=== PATIENT | female | born 1990 | race African-American/Black ===

== ENCOUNTER 2021-07-04 03:11 | Emergency (ER) | payer MEDICAID, SELFPAY ==
[2021-07-04 03:20] VITALS: BP 142/69; PULSE 69; O2SAT 100
[2021-07-04 03:32] VITALS: BP 110/62; PULSE 73; RESP 16; TEMP 37.1; O2SAT 100; BMI 24.1
[2021-07-04 03:51] LABS: IDNOW Serial# 9DD0AD1C
[2021-07-04 03:52] LABS: COVID-19 Test Positive (Negative)
--- NOTE | 2021-07-04 04:48 | ED_ITS ---
HPI - General Adult General Chief complaint: General Medical Stated complaint: +covid w/ symptoms Time Seen by Provider: 07/04/21 04:45 Source: patient History of Present Illness HPI narrative: this is a 30-year-old female who has had a cough for about 3 days with associated nausea and vomiting. The patient states she has been unable to hold down any food or fluids for the last 3 days that she feels that she is dehydrated, feels that her mouth is dry. She denies any sore throat. She has had mild rhinorrhea. She says her cough is actually improved. She has had abdominal pain. She did have diarrhea yesterday. She denies any urinary symptoms. She has not been vaccinated for COVID Related Data Previous Rx's Medication Instructions Recorded ondansetron 4 mg disintegrating 4 mg PO Q6H PRN #10 tab 07/04/21 tablet Allergies Allergy/AdvReac Type Severity Reaction Status Date / Time penicillin V Allergy Severe anaphylaxis Verified 08/04/19 00:00 Penicillins [PENICILLINS] Allergy Unknown DIFFICULTY Unverified 03/21/20 16:41 BREATHING Review of Systems Review of Systems: Yes all other systems are reviewed and are negative Constitutional: Constitutional: Reports as per HPI and Denies fever(s) Eyes: Eyes: Reports as per HPI and Reports no additional eye complaints ENT: Reports system reviewed and no additional complaints, except as documented, Reports as per HPI, Denies nasal congestion, Denies nasal discharge and Denies sore throat Cardiovascular: Cardiovascular: Reports as per HPI, Denies chest pain and Denies dyspnea Respiratory: Respiratory: Reports as per HPI, Reports cough and Denies dyspnea Gastrointestinal: Gastrointestinal: Reports as per HPI, Reports abdominal pain, Reports diarrhea, Reports nausea and Reports vomiting Genitourinary: Genitourinary: Reports as per HPI, Denies hematuria, Denies urinary frequency and Denies dysuria Musculoskeletal: Musculoskeletal: Reports myalgias and Denies numbness Integumentary/Breasts: Skin/Breast: Reports as per HPI and Denies rash Neurologic: Reports as per HPI, Denies focal weakness, Denies numbness and De nies Sensory deficit (Neuro) Psychiatric: Psychiatric: Reports no additional psychiatric complaints and Reports as per HPI Endocrine: Endocrine: Reports no additional endocrine complaints and Reports as per HPI Hematologic/Lymphatic: Hematologic/Lymphatic: Reports no additional hematologic/lymphatic complaints, Reports as per HPI and Reports other (No peripheral edema) [facility] Past Medical History Medical History (Updated 07/05/21 @ 00:01 by Background Nirmala) Asthma Social History Social History Advance Directives: No Advance Directives Information Provided: No Patient : No Physical Exam Vital Signs: Vital Signs: Last Vital Signs Temp 98.5 F 07/04/21 07:25 Pulse 78 07/04/21 07:25 Resp 15 07/04/21 07:25 BP 129/68 07/04/21 07:25 Pulse Ox 100 07/04/21 07:25 BMI result Body Mass Index 24.1 Const: General: cooperative, no acute distress and alert Che[place] entation/consciousness: patient oriented x3 HENMT: Head: Yes normal to inspection Eyes: General: appearance normal, both eyes and all related structures Eyelids: Yes eyelids normal Conjunctivae: conjunctivae normal Pupils: Equal, round and reactive pupils present Neck: Neck: Yes normal visual inspection and Yes supple Chest: Chest palpation & inspection: normal inspection of the chest Resp: Effort & Inspection: normal respiratory effort Auscultation: clear to auscultation bilaterally Cardio: Rate: regular rate Rhythm: regular rhythm Heart sounds: S1 normal heart sound present, S2 normal heart sound present, no gallops, no murmurs and no rubs GI: Palpation (GI): Soft to palpation, nontender and Other GI palpation findings present (Non-distended) Auscultation: normal bowel sounds Skin: General skin exam: no rashes or lesions noted Neuro: General: patient oriented x3, no focal motor deficits and CN's II-XI intact bilaterally Cranial nerves: Yes Equal, round and reactive pupils present Cognition (Neuro): normal cognition Motor exam (neuro): 5/5 motor strength present throughout Sensory Exam: No Sensory deficit (Neuro) Extrem: General: Yes normal to inspection and Yes no pedal edema Psych: Appearance: grossly normal Affect: normal affect Medical Decision Making MDM Narrative Medical decision making narrative: Patient with COVID, unvaccinated, complains of nausea and vomiting inability to hold down fluids. Patient was given normal saline 2 L IV in the ED as well as Zofran IV. Patient did not appear dehydrated. Labs are unremarkable with no evidence of deviated Lab Data Lab results reviewed: Yes I reviewed the patient's lab results. Result diagrams: 07/04/21 05:15 07/04/21 07:17 Labs: Lab Results 07/04/21 07/04/21 07/04/21 Range/Units 03:39 05:15 07:17 WBC 8.4 (4.8-10.8) X10*3/uL RBC 4.59 (4.20-5.50) X10*6/uL Hgb 13.7 (12.0-16.0) g/dl Hct 40.1 (37.0-47.0) % MCV 87.4 (80.0-98.0) fL MCH 29.8 (27.0-33.0) pg MCHC 34.2 (31.0-35.0) g/dl RDW 13.0 (11.0-16.0) % Plt Count 237 (160-400) X10*3/uL MPV 9.5 (9.4-12.3) fL Immature Gran % (Auto) 0.4 (0.0-0.4) % Neut % (Auto) 87.5 H (45-73) % Lymph % (Auto) 2.4 L (20-40) % [place] % (Auto) 9.5 (2-11) % Eos % (Auto) 0.0 (0-4) % Baso % (Auto) 0.2 (0-2) % Lymph # (Auto) 0.2 L (1.2-4.9) X10*3/uL [place] # (Auto) 0.8 (0.1-1.2) X10*3/uL Eos # (Auto) 0.0 (0.0-0.4) X10*3/uL Baso # (Auto) 0.0 (0.0-0.2) X10*3/uL Abs Immat Gran (auto) 0.03 (0.00-0.03) X10*3/uL Absolute Neuts (auto) 7.4 (2.0-8.3) x10*3/uL Absolute Nucleated RBC 0.000 (0.0-0.012) X10*3/uL Nucleated RBC % (auto) 0.0 (0.0-0.2) /100WBC Sodium 139 (135-145) mmol/L Potassium 3.6 (3.3-5.1) mmol/L Chloride 105 (96-108) mmol/L Carbon Dioxide 27 (22-29) mmol/L Anion Gap 11 L (12-20) BUN 11 (9-16) mg/dL Creatinine 0.68 (0.5-1.4) mg/dL Estim Creat Clear Calc 109.8 Estimated GFR > 60 Random Glucose 113 (60-115) mg/dL Calcium 8.8 (8.4-10.2) mg/dL COVID-19 (LEFTY) Positive A (Negative) COVID-19 Clin Com See Note Discharge Plan Discharge Clinical Impression: COVID-19, Nausea & vomiting Patient Disposition: Home, Self-Care Instructions: Acute Nausea and Vomiting (ED), COVID-19 (Coronavirus Disease 2019) (ED) Additional Instructions: Try to keep clear liquids down a little bit at a time. Use ondansetron as prescribed for nausea. Return for any new or worsened symptoms such as shortness of breath, increased weakness, inability to hold down fluids. Quarantine at home for the next 10 days. Prescriptions: New ondansetron 4 mg tablet,disintegrating 4 mg PO Q6H PRN (Reason: nausea and vomiting) Qty: 10 RF: 0 Interventions: ED Discharge Assessment Last Done: 07/04/21 07:27 Discharge Date/Time: 07/04/21 07:28
[2021-07-04] MEDS: 0.9 % Sodium Chloride 1,000 ML 999 ML IV (05:18)
[2021-07-04] MEDS: ondansetron HCL 4 MG/2 ML VIAL IVPUSH (05:18)
[2021-07-04 05:19] LABS: MANUAL DIFF FLAG NO
[2021-07-04 05:20] LABS: Basophils Percent Auto 0.2 % (0-2); Hematocrit 40.1 % (37.0-47.0); Hemoglobin 13.7 g/dl (12.0-16.0); Imm Gran Abs Auto 0.03 X10*3/uL (0.00-0.03); Imm Gran Pct Auto 0.4 % (0.0-0.4); Lymphocytes Absolute Auto 0.2 X10*3/uL (1.2-4.9); Lymphocytes Percent Auto 2.4 % (20-40); Mean Corpuscular HGB Conc 34.2 g/dl (31.0-35.0); Mean Corpuscular Hemoglobin 29.8 pg (27.0-33.0); Mean Corpuscular Volume 87.4 fL (80.0-98.0); Mean Platelet Volume 9.5 fL (9.4-12.3); Monocytes Absolute Auto 0.8 X10*3/uL (0.1-1.2); Monocytes Percent Auto 9.5 % (2-11); Neutrophils Absolute Auto 7.4 x10*3/uL (2.0-8.3); Neutrophils Percent Auto 87.5 % (45-73); Platelet Count 237 X10*3/uL (160-400); Red Blood Count 4.59 X10*6/uL (4.20-5.50); White Blood Count 8.4 X10*3/uL (4.8-10.8)
[2021-07-04 07:25] VITALS: BP 129/68; PULSE 78; RESP 15; TEMP 36.9; O2SAT 100
[2021-07-04] MEDS: Acetaminophen 325 MG TABLET 650 MG PO (07:31)
[2021-07-04 07:38] LABS: Anion Gap 11 (12-20); Blood Urea Nitrogen 11 mg/dL (9-16); Calcium 8.8 mg/dL (8.4-10.2); Carbon Dioxide 27 mmol/L (22-29); Chloride 105 mmol/L (96-108); Creatinine Clr Calc Pharmacy 109.8; Estimated Glomerular Filt Rate > 60; Glucose Random 113 mg/dL (60-115); Potassium 3.6 mmol/L (3.3-5.1); Sodium 139 mmol/L (135-145)
== END 2021-07-04 07:28 | disposition home or self-care (01) ==
PROVIDERS: Emergency Provider Emergency Medicine
DX: U07.1 COVID-19 (principal); R11.2 Nausea with vomiting, unspecified
CPT/HCPCS: 36415; 80048; 85025; 87635; 96361; 96374; 99284; J2405

== ENCOUNTER 2023-11-01 13:40 | Outpatient (REF) | payer MEDICAID, SELFPAY ==
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
== END 2023-11-01 13:41 | disposition home or self-care (01) ==
LOC: HO.HHCX 13:40
PROVIDERS: Visit Provider Internal Medicine
DX: M20.002 Unspecified deformity of left finger(s) (principal)
CPT/HCPCS: 73130

== ENCOUNTER 2024-01-12 12:41 | Emergency (ER) | payer MEDICAID, SELFPAY ==
--- NOTE | ~2024-01-12 | XR_ITS ---
EXAMINATION: XR HAND, LEFT CLINICAL INFORMATION: Pain, injury COMPARISON: Left hand x-ray on 11/01/2023 TECHNIQUE: PA, lateral, and oblique views of the left hand. FINDINGS: The bones and soft tissues are normal. No fracture. Alignment is anatomic. Joint spaces are maintained. No erosions or soft tissue calcifications. XR/XR hand LT min 3V IMPRESSION: Normal left hand.
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
[2024-01-12 13:12] VITALS: BP 130/78; PULSE 106; BMI 23.0
[2024-01-12] MEDS: Bacitracin Oint 0.9 GM PACKET 1 APPL TOPICAL (14:02)
== END 2024-01-12 14:09 | disposition home or self-care (01) ==
PROVIDERS: Emergency Provider Emergency Medicine
DX: S80.212A Abrasion, left knee, initial encounter (principal); S60.512A Abrasion of left hand, initial encounter; M25.562 Pain in left knee; M79.642 Pain in left hand; Y04.2XXA Assault by strike against or bumped into by another person, initial encounter; Y93.9 Activity, unspecified; Y92.9 Unspecified place or not applicable; Y99.8 Other external cause status
CPT/HCPCS: 73130; 99281; 99283

== ENCOUNTER 2024-02-18 15:15 | Outpatient (REF) | payer MEDICAID, SELFPAY ==
[2024-02-18 16:05] LABS: MANUAL DIFF FLAG NO
[2024-02-18 16:10] LABS: Basophils Absolute Auto 0.1 X10*3/uL (0.0-0.2); Basophils Percent Auto 0.7 % (0-2); Eosinophils Absolute Auto 0.1 X10*3/uL (0.0-0.4); Eosinophils Percent Auto 0.5 % (0-4); Hematocrit 39.6 % (37.0-47.0); Hemoglobin 13.5 g/dl (12.0-16.0); Imm Gran Abs Auto 0.06 X10*3/uL (0.00-0.03); Imm Gran Pct Auto 0.4 % (0.0-0.4); Lymphocytes Absolute Auto 2.3 X10*3/uL (1.2-4.9); Lymphocytes Percent Auto 16.8 % (20-40); Mean Corpuscular HGB Conc 34.1 g/dl (31.0-35.0); Mean Corpuscular Hemoglobin 29.3 pg (27.0-33.0); Mean Corpuscular Volume 85.9 fL (80.0-98.0); Mean Platelet Volume 9.3 fL (9.4-12.3); Monocytes Absolute Auto 0.8 X10*3/uL (0.1-1.2); Monocytes Percent Auto 5.9 % (2-11); Neutrophils Absolute Auto 10.2 x10*3/uL (2.0-8.3); Neutrophils Percent Auto 75.7 % (45-73); Platelet Count 295 X10*3/uL (160-400); Red Blood Count 4.61 X10*6/uL (4.20-5.50); Red Cell Distribution Width 12.8 % (11.0-16.0); White Blood Count 13.5 X10*3/uL (4.8-10.8)
[2024-02-18 16:35] LABS: Alanine Aminotransferase 13 U/L (0-31); Albumin Level 4.2 g/dL (3.5-5.0); Alkaline Phosphatase 39 U/L (39-117); Anion Gap 12 (12-20); Aspartate Amino Transferase 18 U/L (5-31); Bilirubin Total 0.5 mg/dL (0.0-1.0); Blood Urea Nitrogen 11 mg/dL (9-16); Calcium 9.2 mg/dL (8.4-10.2); Carbon Dioxide 22 mmol/L (22-29); Chloride 110 mmol/L (96-108); Estimated Glomerular Filt Rate > 60; Glucose Random 92 mg/dL (60-115); Potassium 3.8 mmol/L (3.3-5.1); Sodium 140 mmol/L (135-145); Total Protein 6.7 g/dL (6.5-8.0)
== END 2024-02-18 15:16 | disposition home or self-care (01) ==
LOC: HO.HHCL 15:15
PROVIDERS: Visit Provider General Practice
DX: R11.2 Nausea with vomiting, unspecified (principal)
CPT/HCPCS: 36415; 80053; 83036; 85025

== ENCOUNTER 2024-02-18 15:35 | Outpatient (REF) | payer MEDICAID, SELFPAY ==
[2024-02-18 16:39] LABS: Estimated Average Glucose 91 mg/dL; Hemoglobin A1c % 4.8 % (<6.0)
== END 2024-02-18 15:36 | disposition home or self-care (01) ==
LOC: HO.HHCL 15:35
PROVIDERS: Visit Provider General Practice
DX: R11.2 Nausea with vomiting, unspecified (principal)
CPT/HCPCS: 36415; 83036

== ENCOUNTER 2024-02-22 11:12 | Outpatient (REF) | payer MEDICAID, SELFPAY | END 2024-02-22 11:13 | disposition home or self-care (01) | LOC: HO.LNP 11:12 | PROVIDERS: Visit Provider General Practice | DX: R11.2 Nausea with vomiting, unspecified (principal) | CPT/HCPCS: 87338 ==

== ENCOUNTER 2024-03-27 03:03 | Emergency (ER) | payer MEDICAID, SELFPAY ==
[2024-03-27 03:08] VITALS: BP 124/67; PULSE 72; RESP 18; TEMP 36.5; O2SAT 99; BMI 22.5
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
[2024-03-27] MEDS: ondansetron HCL 4 MG/2 ML VIAL IVPUSH (03:54)
[2024-03-27 03:56] LABS: Influenza A PCR NEGATIVE (Negative); Influenza B PCR NEGATIVE (Negative); Resp Syncy Virus RNA Qual PCR NEGATIVE (Negative); SARS COV2 PCR INHOUSE NEGATIVE (Negative)
[2024-03-27] MEDS: 0.9 % Sodium Chloride 1,000 ML 999 ML IV (03:56)
[2024-03-27 04:13] LABS: Basophils Absolute Auto 0.1 X10*3/uL (0.0-0.2); Basophils Percent Auto 0.8 % (0-2); Eosinophils Percent Auto 0.4 % (0-4); Hematocrit 38.1 % (37.0-47.0); Hemoglobin 13.1 g/dl (12.0-16.0); Imm Gran Abs Auto 0.03 X10*3/uL (0.00-0.03); Imm Gran Pct Auto 0.3 % (0.0-0.4); Lymphocytes Absolute Auto 1.1 X10*3/uL (1.2-4.9); Lymphocytes Percent Auto 10.4 % (20-40); MANUAL DIFF FLAG NO; Mean Corpuscular HGB Conc 34.4 g/dl (31.0-35.0); Mean Corpuscular Hemoglobin 29.3 pg (27.0-33.0); Mean Corpuscular Volume 85.2 fL (80.0-98.0); Mean Platelet Volume 9.3 fL (9.4-12.3); Monocytes Absolute Auto 0.3 X10*3/uL (0.1-1.2); Monocytes Percent Auto 2.7 % (2-11); Neutrophils Absolute Auto 9.1 x10*3/uL (2.0-8.3); Neutrophils Percent Auto 85.4 % (45-73); Platelet Count 251 X10*3/uL (160-400); Red Blood Count 4.47 X10*6/uL (4.20-5.50); Red Cell Distribution Width 12.7 % (11.0-16.0); White Blood Count 10.6 X10*3/uL (4.8-10.8)
[2024-03-27 04:26] LABS: Alanine Aminotransferase 22 U/L (0-31); Alkaline Phosphatase 40 U/L (39-117); Anion Gap 12 (12-20); Aspartate Amino Transferase 26 U/L (5-31); Bilirubin Total 0.5 mg/dL (0.0-1.0); Blood Urea Nitrogen 14 mg/dL (9-16); Calcium 9.6 mg/dL (8.4-10.2); Carbon Dioxide 29 mmol/L (22-29); Chloride 107 mmol/L (96-108); Creatinine Clr Calc Pharmacy 87.6; Estimated Glomerular Filt Rate > 60; Glucose Random 122 mg/dL (60-115); Lipase 10 U/L (8-78); Potassium 3.9 mmol/L (3.3-5.1); Sodium 144 mmol/L (135-145); Total Protein 6.4 g/dL (6.5-8.0)
[2024-03-27 06:02] VITALS: BP 109/47; PULSE 59; RESP 16; TEMP 36.8; O2SAT 97
[2024-03-27 06:17] VITALS: BP 110/70; PULSE 68; RESP 14; TEMP 36.8; O2SAT 99
== END 2024-03-27 06:20 | disposition home or self-care (01) ==
PROVIDERS: Emergency Provider Internal Medicine
DX: R11.2 Nausea with vomiting, unspecified (principal); Z03.818 Encounter for observation for suspected exposure to other biological agents ruled out
CPT/HCPCS: 0241U; 36415; 80053; 83690; 85025; 96374; 99284; J2405

== ENCOUNTER 2024-05-04 01:24 | Emergency (ER) | payer MEDICAID, SELFPAY ==
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
[2024-05-04 01:31] VITALS: BP 129/88; PULSE 119; RESP 24; TEMP 37.6; O2SAT 98; BMI 21.8
[2024-05-04] MEDS: Acetaminophen 325 MG TABLET 975 MG PO (01:41)
[2024-05-04] MEDS: Clindamycin HCL 300 MG CAPSULE PO (01:42)
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
[2024-05-04 04:49] VITALS: BP 120/73; PULSE 99; RESP 16; TEMP 36.7; O2SAT 98
== END 2024-05-04 04:50 | disposition home or self-care (01) ==
PROVIDERS: Emergency Provider Emergency Medicine
DX: S09.90XA Unspecified injury of head, initial encounter (principal); S01.511A Laceration without foreign body of lip, initial encounter; Y00.XXXA Assault by blunt object, initial encounter; Y93.89 Activity, other specified; Y92.9 Unspecified place or not applicable; Y99.9 Unspecified external cause status
CPT/HCPCS: 70450; 99284

== ENCOUNTER 2024-05-18 12:09 | Outpatient (REF) | payer MEDICAID, SELFPAY ==
[2024-05-18 18:46] LABS: CT PCR NOT DETECTED (Not Detect.); NG PCR NOT DETECTED (Not Detect.)
[2024-05-19 08:25] LABS: HIV AB/AG Nonreactive (Nonreactive); HIV Num 1 0.06 S/CO (0.00-0.99); ~HepC Num1 0.09 S/CO (0.00-0.79); ~Hepatitis C Antibody Nonreactive (Nonreactive)
[2024-05-22 14:18] LABS: RPR Rapid Plasma Reagin NON-REACTIVE (NON-REACTIVE)
== END 2024-05-18 12:10 | disposition home or self-care (01) ==
LOC: HO.HHCL 12:09
PROVIDERS: Visit Provider General Practice
DX: Z11.3 Encounter for screening for infections with a predominantly sexual mode of transmission (principal); Z11.4 Encounter for screening for human immunodeficiency virus [HIV]
CPT/HCPCS: 86592; 86803; 87389; 87491; 87591

== ENCOUNTER 2024-07-09 15:04 | Emergency (ER) | payer MEDICAID, SELFPAY ==
[2024-07-09 16:04] VITALS: BP 106/71; PULSE 74; RESP 18; TEMP 36.9; O2SAT 99; BMI 22.5
--- NOTE | 2024-07-09 16:12 | ED_ITS ---
HPI - General Adult General Chief complaint: Nausea/Vomiting/Diarrhea Stated complaint: n/v/d x 3 days Time Seen by Provider: 07/09/24 18:50 Related Data Previous Rx's ?Medication ?Instructions ?Recorded ondansetron 4 mg disintegrating 4 mg PO Q6H PRN nausea and 07/04/21 tablet vomiting #10 tabs rdxybmktlj-bkhuwxeusfubr-ktcsaheh 1 tab PO Q6H PRN haeadace #20 tabs 03/27/24 50 mg-325 mg-40 mg tablet ondansetron HCl 4 mg tablet 4 mg PO Q6H PRN nausea and 03/27/24 vomiting #10 tabs clindamycin HCl 300 mg capsule 300 mg PO TID #14 caps 05/04/24 ibuprofen 400 mg tablet 400 mg PO Q6H PRN pain #20 tabs 07/09/24 Allergies Allergy/AdvReac Type Severity Reaction Status Date / Time penicillin V Allergy Severe anaphylaxis Verified 07/09/24 16:10 Penicillins [PENICILLINS] Allergy Unknown DIFFICULTY Verified 07/09/24 16:10 BREATHING PMFSH Past Medical History Medical History Asthma Social History Social History Alcohol intake: current Alcohol intake frequency: holidays/special occasions only Smoked in Last 30 Days: Yes Use of substances other than those prescribed or required for medical reasons: Yes Substance Use Type: Marijuana Substance Use Frequency: Daily Advance Directives: No Advance Directives Information Provided: No Do you have a plan to hurt others: No Plan Patient : No Physical Exam ED Vital Signs: Vital Signs - 24 hr 07/09/24 16:04 07/09/24 20:02 Temperature 98.4 F 98.3 F Pulse Rate 74 71 Respiratory Rate 18 16 Blood Pressure 106/71 111/65 Pulse Oximetry 99 99 Oxygen Delivery Method Room Air Room Air BMI result Body Mass Index 22.5 Course Course Course Narrative: RME: 33-year-old female presents to ED for nausea vomiting diarrhea for the past 3 days with fever and chills. Patient was exposed to a sick . Labs ordered. Medications Administered Discontinued Medications Generic Name Dose Route Start Last Admin Trade Name Freq PRN Reason Stop Dose Admin Sodium Chloride 1,000 mls @ 999 mls/hr 07/09/24 19:30 07/09/24 22:43 Ns IV 07/09/24 20:30 Infused .Q1H1M LAYLA Infusion Sodium Chloride 1,000 mls @ 999 mls/hr 07/09/24 19:30 07/09/24 22:43 Ns IV 07/09/24 20:30 Infused .Q1H1M LAYLA Infusion Ketorolac Tromethamine 30 mg 07/09/24 19:23 07/09/24 19:47 Ketorolac Tromethamine 30 Mg/Ml Vial IVPUSH 07/09/24 19:24 30 mg ONCE ONE Administration Ondansetron HCl 4 mg 07/09/24 19:23 07/09/24 19:47 Ondansetron Hcl 4 Mg/2 Ml Vial IVPUSH 07/09/24 19:24 4 mg ONCE ONE Administration Medical Decision Making Lab Data 07/09/24 16:56 07/09/24 16:56 Labs: Lab Results 07/09/24 07/09/24 Range/Units 16:56 21:52 WBC 8.9 (4.8-10.8) X10*3/uL RBC 4.61 (4.20-5.50) X10*6/uL Hgb 13.5 (12.0-16.0) g/dl Hct 39.0 (37.0-47.0) % MCV 84.6 (80.0-98.0) fL MCH 29.3 (27.0-33.0) pg MCHC 34.6 (31.0-35.0) g/dl RDW 12.4 (11.0-16.0) % Plt Count 186 D (160-400) X10*3/uL MPV 9.5 (9.4-12.3) fL Immature Gran % (Auto) 0.6 H (0.0-0.4) % Neut % (Auto) 92.0 H (45-73) % Lymph % (Auto) 2.6 L (20-40) % [place] % (Auto) 4.2 (2-11) % Eos % (Auto) 0.1 (0-4) % Baso % (Auto) 0.5 (0-2) % Lymph # (Auto) 0.2 L (1.2-4.9) X10*3/uL [place] # (Auto) 0.4 (0.1-1.2) X10*3/uL Eos # (Auto) 0.0 (0.0-0.4) X10*3/uL Baso # (Auto) 0.0 (0.0-0.2) X10*3/uL Abs Immat Gran (auto) 0.05 H (0.00-0.03) X10*3/uL Absolute Neuts (auto) 8.2 (2.0-8.3) x10*3/uL Absolute Nucleated RBC 0.000 (0.0-0.012) X10*3/uL Nucleated RBC % (auto) 0.0 (0.0-0.2) /100WBC Smear Tech's Comments VERIFIED Sodium 139 (135-145) mmol/L Potassium 3.4 (3.3-5.1) mmol/L Chloride 107 (96-108) mmol/L Carbon Dioxide 20 L (22-29) mmol/L Anion Gap 15 (12-20) BUN 12 (9-16) mg/dL Creatinine 0.76 (0.5-1.4) mg/dL Estim Creat Clear Calc 95.6 Estimated GFR > 60 Random Glucose 113 (60-115) mg/dL Calcium 9.5 (8.4-10.2) mg/dL Total Bilirubin 0.5 (0.0-1.0) mg/dL AST 28 (5-31) U/L ALT 20 (0-31) U/L Alkaline Phosphatase 41 (39-117) U/L Total Protein 7.1 (6.5-8.0) g/dL Albumin 4.3 (3.5-5.0) g/dL Beta HCG, Quant < 2 mIU/mL Urine Color Dark Yellow Urine Appearance Hazy Urine pH 5.5 (5.0-9.0) Ur Specific [place] >= 1.030 H (1.005-1.025) Urine Protein 100 (2+) H (Neg-Trace) mg/dL Urine Glucose (UA) Negative (Negative) mg/dL Urine Ketones 15 (Negative) mg/dL Urine Blood Negative (Negative) Urine Nitrite Negative (Negative) Ur Leukocyte Esterase Negative (Negative) Urine RBC 0-2 (0-2) /HPF Urine WBC 0-5 (0-5) /HPF Ur Squamous Epith Cells 6-10 (0-2) /HPF Urine Bacteria Trace (None Seen) Hyaline Casts 3-5 (0-2) /LPF Urine Test NEGATIVE (NEGATIVE) Influenza Type A (PCR) POSITIVE A (Negative) Influenza Type B (PCR) NEGATIVE (Negative) RSV RNA Qual (PCR) NEGATIVE (Negative) SARS-CoV-2 RNA (RT-PCR) NEGATIVE (Negative) S. pyogenes GrpA EFREN Negative (Negative) Discharge Plan Discharge Clinical Impression: Influenza Patient Disposition: Home, Self-Care Instructions: Influenza (ED) Prescriptions: New ibuprofen 400 mg tablet 400 mg PO Q6H PRN (Reason: pain) Qty: 20 0RF No Action ondansetron 4 mg tablet,disintegrating 4 mg PO Q6H PRN (Reason: nausea and vomiting) Qty: 10 0RF clindamycin HCl 300 mg capsule 300 mg PO TID Qty: 14 0RF ondansetron HCl 4 mg tablet 4 mg PO Q6H PRN (Reason: nausea and vomiting) Qty: 10 0RF htmtpgrksu-puwqxhsenhghs-wvez 50-325-40 mg tablet 1 tab PO Q6H PRN (Reason: haeadace) Qty: 20 0RF Referrals: [facility] [Primary Care Provider] - 07/11/24 Print Language: Turkish
[2024-07-09 17:04] LABS: Basophils Percent Auto 0.5 % (0-2); Eosinophils Percent Auto 0.1 % (0-4); Hemoglobin 13.5 g/dl (12.0-16.0); Imm Gran Abs Auto 0.05 X10*3/uL (0.00-0.03); Imm Gran Pct Auto 0.6 % (0.0-0.4); Lymphocytes Absolute Auto 0.2 X10*3/uL (1.2-4.9); Lymphocytes Percent Auto 2.6 % (20-40); MANUAL DIFF FLAG SCAN; Mean Corpuscular HGB Conc 34.6 g/dl (31.0-35.0); Mean Corpuscular Hemoglobin 29.3 pg (27.0-33.0); Mean Corpuscular Volume 84.6 fL (80.0-98.0); Mean Platelet Volume 9.5 fL (9.4-12.3); Monocytes Absolute Auto 0.4 X10*3/uL (0.1-1.2); Monocytes Percent Auto 4.2 % (2-11); Neutrophils Absolute Auto 8.2 x10*3/uL (2.0-8.3); Platelet Count 186 X10*3/uL (160-400); Red Blood Count 4.61 X10*6/uL (4.20-5.50); Red Cell Distribution Width 12.4 % (11.0-16.0); SCAN SMEAR FLAG 1; White Blood Count 8.9 X10*3/uL (4.8-10.8)
[2024-07-09 17:14] LABS: IDNOW Serial# 58CA691E; Strep A Nucleic Acid Negative (Negative)
[2024-07-09 17:24] LABS: Alanine Aminotransferase 20 U/L (0-31); Albumin Level 4.3 g/dL (3.5-5.0); Alkaline Phosphatase 41 U/L (39-117); Anion Gap 15 (12-20); Aspartate Amino Transferase 28 U/L (5-31); Bilirubin Total 0.5 mg/dL (0.0-1.0); Blood Urea Nitrogen 12 mg/dL (9-16); Calcium 9.5 mg/dL (8.4-10.2); Carbon Dioxide 20 mmol/L (22-29); Chloride 107 mmol/L (96-108); Creatinine Clr Calc Pharmacy 95.6; Estimated Glomerular Filt Rate > 60; Glucose Random 113 mg/dL (60-115); Potassium 3.4 mmol/L (3.3-5.1); Sodium 139 mmol/L (135-145); Total Protein 7.1 g/dL (6.5-8.0)
[2024-07-09 17:26] LABS: HCG Quantitative < 2 mIU/mL
--- NOTE | 2024-07-09 17:34 | PC.NURSE ---
large amount coffee ground emisis in wr BR
[2024-07-09 17:43] LABS: Influenza A PCR POSITIVE (Negative); Influenza B PCR NEGATIVE (Negative); Resp Syncy Virus RNA Qual PCR NEGATIVE (Negative); SARS COV2 PCR INHOUSE NEGATIVE (Negative)
[2024-07-09 17:57] LABS: SLIDE REVIEW VERIFIED
--- NOTE | 2024-07-09 19:28 | ED.NAVMDI ---
HPI - Nausea/Vomiting/Diarrhea General Chief complaint: Nausea/Vomiting/Diarrhea Stated complaint: n/v/d x 3 days Time Seen by Provider: 07/09/24 18:50 History of Present Illness HPI Narrative: Patient is a 33-year-old female presents today with having coughing congestion upper respiratory symptoms along with nausea vomiting diarrhea. Feels very weak tired total body ache. Patient from home. Did not get her flu vaccine this year. No pain on urination. Related Data Previous Rx's ?Medication ?Instructions ?Recorded ondansetron 4 mg disintegrating 4 mg PO Q6H PRN nausea and 07/04/21 tablet vomiting #10 tabs rbcjcubplv-kwtmgehzhegnf-fmowdnoz 1 tab PO Q6H PRN haeadace #20 tabs 03/27/24 50 mg-325 mg-40 mg tablet ondansetron HCl 4 mg tablet 4 mg PO Q6H PRN nausea and 03/27/24 vomiting #10 tabs clindamycin HCl 300 mg capsule 300 mg PO TID #14 caps 05/04/24 ibuprofen 400 mg tablet 400 mg PO Q6H PRN pain #20 tabs 07/09/24 Allergies Allergy/AdvReac Type Severity Reaction Status Date / Time penicillin V Allergy Severe anaphylaxis Verified 07/09/24 16:10 Penicillins [PENICILLINS] Allergy Unknown DIFFICULTY Verified 07/09/24 16:10 BREATHING Review of Systems Review of Systems: Positive nausea vomiting positive total body ache positive coughing upper respiratory symptoms PMFSH Past Medical History Medical History Asthma Social History Social History Alcohol intake: current Alcohol intake frequency: holidays/special occasions only Smoked in Last 30 Days: Yes Use of substances other than those prescribed or required for medical reasons: Yes Substance Use Type: Marijuana Substance Use Frequency: Daily Advance Directives: No Advance Directives Information Provided: No Do you have a plan to hurt others: No Plan Patient : No Physical Exam Vital Signs: Vital Signs: Last Vital Signs Temp 98.3 F 07/09/24 20:02 Pulse 71 07/09/24 20:02 Resp 16 07/09/24 20:02 BP 111/65 07/09/24 20:02 Pulse Ox 99 07/09/24 20:02 O2 Del Method Room Air 07/09/24 20:02 BMI result Body Mass Index 22.5 Appearance: Alert. Oriented X3. No acute distress. Eyes: Pupils equal, round and reactive to light. ENT: Pharynx normal. Neck: Normal inspection. Neck supple. No lymph nodes noted. No crepitus CVS: Normal heart rate and rhythm. Pulses normal. Normal S1 and S2 Respiratory: No respiratory distress. Breath sounds normal. No Wheezing. No rales Abdomen: Soft and nontender. No rigidity. No distention. good BS x4 Skin: Skin warm and dry. Normal skin color. Normal skin turgor. Extremities: No lower extremity edema. Neurovascular intact to all extremities. No Lacerations. No Rash Neuro: Oriented X 3. No motor deficit. No sensory deficit. Moving all extermities. No slurred speech Medications Administered Discontinued Medications Generic Name Dose Route Start Last Admin Trade Name Freq PRN Reason Stop Dose Admin Sodium Chloride 1,000 mls @ 999 mls/hr 07/09/24 19:30 07/09/24 22:43 Ns IV 07/09/24 20:30 Infused .Q1H1M LAYLA Infusion Sodium Chloride 1,000 mls @ 999 mls/hr 07/09/24 19:30 07/09/24 22:43 Ns IV 07/09/24 20:30 Infused .Q1H1M LAYLA Infusion Ketorolac Tromethamine 30 mg 07/09/24 19:23 07/09/24 19:47 Ketorolac Tromethamine 30 Mg/Ml Vial IVPUSH 07/09/24 19:24 30 mg ONCE ONE Administration Ondansetron HCl 4 mg 07/09/24 19:23 07/09/24 19:47 Ondansetron Hcl 4 Mg/2 Ml Vial IVPUSH 07/09/24 19:24 4 mg ONCE ONE Administration Medical Decision Making Medical Decision Making MDM Narrative: Well-appearing positive total body ache. Generalized malaise. Patient's flu test came back positive. Likely the cause of patient's symptoms. Symptom has been ongoing for greater than 72 hours. Do not think Tamiflu would help here. Patient is otherwise fairly healthy. Does have a history of asthma but her lungs are clear oxygen saturation is normal. Will give symptomatic support with IV fluids Toradol. Monitor carefully. Urine showed no signs of infection. test is negative. Patient has flu. Symptoms greater than 72 hours. Will discharge patient home currently satting normally. In no distress. Differential Diagnosis Differential Diagnoses: The differential diagnosis associated with the presentation includes Influenza, COVID, RSV Admission/Observation Consideration of admission/observation: Escalation of care including admission/observation considered Lab Data MDM Lab Attestation statement: I reviewed the patient's lab results. 07/09/24 16:56 07/09/24 16:56 Labs: Lab Results 07/09/24 07/09/24 Range/Units 16:56 21:52 WBC 8.9 (4.8-10.8) X10*3/uL RBC 4.61 (4.20-5.50) X10*6/uL Hgb 13.5 (12.0-16.0) g/dl Hct 39.0 (37.0-47.0) % MCV 84.6 (80.0-98.0) fL MCH 29.3 (27.0-33.0) pg MCHC 34.6 (31.0-35.0) g/dl RDW 12.4 (11.0-16.0) % Plt Count 186 D (160-400) X10*3/uL MPV 9.5 (9.4-12.3) fL Immature Gran % (Auto) 0.6 H (0.0-0.4) % Neut % (Auto) 92.0 H (45-73) % Lymph % (Auto) 2.6 L (20-40) % [place] % (Auto) 4.2 (2-11) % Eos % (Auto) 0.1 (0-4) % Baso % (Auto) 0.5 (0-2) % Lymph # (Auto) 0.2 L (1.2-4.9) X10*3/uL [place] # (Auto) 0.4 (0.1-1.2) X10*3/uL Eos # (Auto) 0.0 (0.0-0.4) X10*3/uL Baso # (Auto) 0.0 (0.0-0.2) X10*3/uL Abs Immat Gran (auto) 0.05 H (0.00-0.03) X10*3/uL Absolute Neuts (auto) 8.2 (2.0-8.3) x10*3/uL Absolute Nucleated RBC 0.000 (0.0-0.012) X10*3/uL Nucleated RBC % (auto) 0.0 (0.0-0.2) /100WBC Smear Tech's Comments VERIFIED Sodium 139 (135-145) mmol/L Potassium 3.4 (3.3-5.1) mmol/L Chloride 107 (96-108) mmol/L Carbon Dioxide 20 L (22-29) mmol/L Anion Gap 15 (12-20) BUN 12 (9-16) mg/dL Creatinine 0.76 (0.5-1.4) mg/dL Estim Creat Clear Calc 95.6 Estimated GFR > 60 Random Glucose 113 (60-115) mg/dL Calcium 9.5 (8.4-10.2) mg/dL Total Bilirubin 0.5 (0.0-1.0) mg/dL AST 28 (5-31) U/L ALT 20 (0-31) U/L Alkaline Phosphatase 41 (39-117) U/L Total Protein 7.1 (6.5-8.0) g/dL Albumin 4.3 (3.5-5.0) g/dL Beta HCG, Quant < 2 mIU/mL Urine Color Dark Yellow Urine Appearance Hazy Urine pH 5.5 (5.0-9.0) Ur Specific [place] >= 1.030 H (1.005-1.025) Urine Protein 100 (2+) H (Neg-Trace) mg/dL Urine Glucose (UA) Negative (Negative) mg/dL Urine Ketones 15 (Negative) mg/dL Urine Blood Negative (Negative) Urine Nitrite Negative (Negative) Ur Leukocyte Esterase Negative (Negative) Urine RBC 0-2 (0-2) /HPF Urine WBC 0-5 (0-5) /HPF Ur Squamous Epith Cells 6-10 (0-2) /HPF Urine Bacteria Trace (None Seen) Hyaline Casts 3-5 (0-2) /LPF Urine Test NEGATIVE (NEGATIVE) Influenza Type A (PCR) POSITIVE A (Negative) Influenza Type B (PCR) NEGATIVE (Negative) RSV RNA Qual (PCR) NEGATIVE (Negative) SARS-CoV-2 RNA (RT-PCR) NEGATIVE (Negative) S. pyogenes GrpA EFREN Negative (Negative) Discharge Plan Discharge Clinical Impression: Influenza Patient Disposition: Home, Self-Care Instructions: Influenza (ED) Prescriptions: New ibuprofen 400 mg tablet 400 mg PO Q6H PRN (Reason: pain) Qty: 20 0RF No Action ondansetron 4 mg tablet,disintegrating 4 mg PO Q6H PRN (Reason: nausea and vomiting) Qty: 10 0RF clindamycin HCl 300 mg capsule 300 mg PO TID Qty: 14 0RF ondansetron HCl 4 mg tablet 4 mg PO Q6H PRN (Reason: nausea and vomiting) Qty: 10 0RF abmikchbwc-kmhrbawhhgeww-cubp 50-325-40 mg tablet 1 tab PO Q6H PRN (Reason: haeadace) Qty: 20 0RF Referrals: [facility] [Primary Care Provider] - 07/11/24 Print Language: Vietnamese
[2024-07-09] MEDS: ondansetron HCL 4 MG/2 ML VIAL IVPUSH (19:47)
[2024-07-09] MEDS: 0.9 % Sodium Chloride 1,000 ML 999 ML IV ×2 (19:47)
[2024-07-09] MEDS: Ketorolac Tromethamine 30 MG/ML VIAL IVPUSH (19:47)
[2024-07-09 20:02] VITALS: BP 111/65; PULSE 71; RESP 16; TEMP 36.8; O2SAT 99
[2024-07-09 22:17] LABS: UPreg QC Valid YES; Urine Pregnancy NEGATIVE (NEGATIVE)
[2024-07-09 22:26] LABS: Color Urine Dark Yellow; Glucose Urine UA Negative (Negative); Leukocyte Esterase Urine Negative (Negative); Nitrite Urine Negative (Negative); PH 5.5 (5.0-9.0); Specific Gravity - Urine >= 1.030 (1.005-1.025); UMIC TRIGGER UACC YES; Urine Blood Negative (Negative); Urine Ketones 15 mg/dL (Negative); Urine Protein 100 (2+) mg/dL (Neg-Trace)
[2024-07-09 22:37] LABS: Bacteria Urine Trace (None Seen); RBC Urine 0-2 /HPF (0-2); WBC Urine 0-5 /HPF (0-5)
[2024-07-09 22:38] LABS: Appearance Urine Hazy
[2024-07-10] MEDS: Acetaminophen 325 MG TABLET 975 MG PO (00:08)
[2024-07-10 00:09] VITALS: BP 108/67; PULSE 53; RESP 14; TEMP 36.6; O2SAT 97
[2024-07-10 00:16] VITALS: BP 108/67; PULSE 53; RESP 14; TEMP 36.6; O2SAT 97
== END 2024-07-10 00:17 | disposition home or self-care (01) ==
PROVIDERS: Physician Assistant; Emergency Provider Emergency Medicine Emergency Medical Services
DX: J10.1 Influenza due to other identified influenza virus with other respiratory manifestations (principal); R11.2 Nausea with vomiting, unspecified; M79.10 Myalgia, unspecified site; Z03.818 Encounter for observation for suspected exposure to other biological agents ruled out; Z79.899 Other long term (current) drug therapy
CPT/HCPCS: 0241U; 80053; 81001; 81003; 81025; 84702; 85025; 87651; 96361; 96374; 96375; 99284; J1885; J2405

== ENCOUNTER 2024-07-28 11:23 | Emergency (ER) | payer MEDICAID, SELFPAY ==
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
[2024-07-28 11:30] VITALS: BP 122/99; PULSE 86; O2SAT 98
--- NOTE | 2024-07-28 11:48 | ED_ITS ---
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 She states she was lying on her bed when she asked her to throw her phone over to her. she states the phone hit the cushioned headboard of the bed and struck patient in the left side of her head. Reports immediate bleeding to her head. No LOC. Not on thinners. At present endorses headache. No vision ch anges, dizziness, NV, neck pain. Admits to history of head trauma when she was a child. States she feels safe at home and that the incident was an accident. She is unsure of her last tetanus. Related Data Previous Rx's ?Medication ?Instructions ?Recorded ondansetron 4 mg disintegrating 4 mg PO Q6H PRN nausea and 07/04/21 tablet vomiting #10 tabs typtueagla-hwrltkbntrofd-uafugmqr 1 tab PO Q6H PRN haeadace #20 tabs 03/27/24 50 mg-325 mg-40 mg tablet ondansetron HCl 4 mg tablet 4 mg PO Q6H PRN nausea and 03/27/24 vomiting #10 tabs clindamycin HCl 300 mg capsule 300 mg PO TID #14 caps 05/04/24 ibuprofen 400 mg tablet 400 mg PO Q6H PRN pain #20 tabs 07/09/24 ondansetron 4 mg disintegrating 4 mg PO TID PRN nausea and 07/10/24 tablet vomiting 5 days #10 tabs Allergies Allergy/AdvReac Type Severity Reaction Status Date / Time penicillin V Allergy Severe anaphylaxis Verified 07/28/24 12:01 Penicillins [PENICILLINS] Allergy Unknown DIFFICULTY Verified 07/28/24 12:01 BREATHING Review of Systems Review of Systems: Constitutional: No fever, chills, fatigue, night sweats, weight changes ENT/Mouth: No ear pain, hearing loss, nasal congestion, sinus pain, rhinorrhea, sore throat Eyes: No eye pain, swelling, redness, vision changes, discharge Cardio: No chest pain, palpitations, [place], orthopnea, peripheral edema Pulm: No SOB, cough, sputum, wheezing, dyspnea, hemoptysis GI: No nausea, vomiting, hematemesis, abdominal pain, diarrhea, constipation, hematochezia, melena : No irregular bleeding, dysuria, frequency, urgency, hesitancy, hematuria, flank pain, urinary flow changes, urinary incontinence or retention MSK: No back pain, neck pain, joint pain, myalgias Skin: No lesions, rashes Neuro: No weakness, numbness, paresthesias, LOC, dizziness, +headache Psych: No anxiety/panic, depression, SI/HI, AH/VH All other systems reviewed and are negative. COUNT INCLUDES THE [facility] Past Medical History Attestation statement: The following information was validated with the patient. Source: old records reviewed and nursing notes reviewed Medical History Asthma Social History Social History Alcohol intake: current Alcohol intake frequency: holidays/special occasions only Substance Use Type: Marijuana Advance Directives: No Advance Directives Information Provided: No Do you have a plan to hurt others: No Plan Physical Exam ED Vital Signs: Vital Signs - 24 hr 07/28/24 11:59 07/28/24 12:00 Temperature 98.2 F Pulse Rate 86 90 Respiratory Rate 18 20 Blood Pressure 112/48 L 112/48 L Pulse Oximetry 100 100 Oxygen Delivery Method Room Air BMI result Body Mass Index 23.3 vital signs stable General: Well appearing, in no acute distress. Skin: Warm, dry, intact. No rashes or lesions. Head: +1.5cm linear superficial scalp laceration noted to left parietal region w/ small underlying hematoma. no palpable skull fracture. bleeding controlled. no raccoon eyes or battles sign. EENT: Hearing is intact b/l. Conjunctiva clear. PERRLA. EOM intact. Moist mucous membranes.? Neck: Supple without LAD Cardiac: Chest wall symmetric. RRR Lungs: Normal respiratory effort without accessory muscle use. CTA bilaterally Back: No midline spinous or paraspinal tenderness. No step off deformity. Ext: Upper and lower extremities atraumatic, without tenderness, deformity, swelling or erythema Neuro: AOx3. Normal speech. Ambulating with steady gait. NIH 0. Psych: Appropriate mood and affect. Responds appropriately to questions. Course Course Course Narrative: CT head/brain without bleed or skull fracture. Tdap updated. Laceration repaired w/ 5 ray (see procedure note). Patient tolerated well. toradol provided for pain control. Patient has remained stable throughout ED visit today. Discussed worrisome signs and symptoms and when to return to the ED. All questions answered at this time. Patient is agreeable with disposition and stable for discharge. Medications Administered Discontinued Medications Generic Name Dose Route Start Last Admin Trade Name Freq PRN Reason Stop Dose Admin Diphtheria/Tetanus/Acell Pertussis 0.5 ml 07/28/24 13:05 07/28/24 14:07 Diphth,Pertus(Acell),Tet Adult 0.5 Ml Syringe IM 07/28/24 13:06 0.5 ml .ONCE ONE Administration Ketorolac Tromethamine 30 mg 07/28/24 12:05 07/28/24 12:28 Ketorolac Tromethamine 30 Mg/Ml Vial IM 07/28/24 12:06 30 mg ONCE ONE Administration Procedures Laceration Laceration 1: Site: scalp Side (If applicable): left Size (cm): 1.5 Description: linear Depth: simple, single layer Pre-repair: wound explored, irrigated extensively and deep structures intact Skin layer closed with: other (ray) Number of sutures: 5 Medical Decision Making Medical Decision Making MDM Narrative: 33 year old female with pmhx significant for asthma and opioid use disorder on methadone x2 yrs presents to the 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 her vitals are stable. she is nontoxic appearing and in NAD. On exam, there is a 1.5cm linear superficial scalp laceration noted to left parietal region w/ small underlying hematoma. no palpable skull fracture. bleeding controlled. no raccoon eyes or battles sign. Her exam is nonfocal. PERRLA. NIH 0. Differential diagnosis included scalp laceration, scalp abrasion, scalp hematoma, contusion, concussion, skull fracture, intracranial bleed Plan lac repair, +/-tdap, CT head, re-evaluation. Differential Diagnosis Differential Diagnoses: The differential diagnosis associated with the presentation includes as above. Admission/Observation not indicated. Independent Interpretation I performed an independent interpretation of an: CT Scan Interpretation: CT head/brain without intracranial bleed or skull fracture. Radiology Impression Discussion of test interpretation with radiology: I have reviewed the radiologist's reading. Radiologist Impression: Report Number: [id number]: Total DLP = 656.00 mGy-cm EXAMINATION: CT HEAD WITHOUT IV CONTRAST HISTORY: head strike, +lac to left head. TECHNIQUE: Unenhanced helical CT of the head was performed per standard departmental protocol. Coronal and sagittal reformats of the head were also evaluated. One or more of the following techniques was used for dose reduction: Automated exposure control, adjustment of the mA and/or kV according to patient size, use of iterative reconstruction technique. DLP: 656 mGy-cm COMPARISON: Comparison is made with the prior examination dated 05/04/2024. FINDINGS: BRAIN: The brain parenchyma is unremarkable. There is normal gilmore/white differentiation. The ventricular system is normal in size and configuration. There is no mass effect or midline shift. No intra- or extra-axial fluid collections are identified. SINUSES: The visualized paranasal sinuses are clear. The mastoid air cells and middle ear cavities are well pneumatized. ORBITS: The visualized orbits are unremarkable. BONES/SOFT TISSUES: There are skin ray in the left frontoparietal region. The calvarium is intact. No suspicious lytic or sclerotic lesions. CT/CT head/brain wo IV con IMPRESSION: No acute intracranial abnormality. Electronically signed by: Flo Powell MD 07/28/2024 12:48 PM [facility] Independent Historian Clinical information obtained from an independent historian. History obtained from or confirmed by: EMS External Record Review External record reviewed: Inpatient record Prescription Management I considered prescription management with: Pain Medication Social Determinants Patient?s care significantly limited by Social Determinants of Health including: Other Social Determinant of Health Critical Care Time Critical Care Time Critical Care Time: No Discharge Plan Discharge Clinical Impression: Laceration of scalp Patient Disposition: Home, Self-Care Instructions: Laceration (ED) Additional Instructions: You have been evaluated in the Emergency Department today for a laceration to your left scalp. Your laceration was repaired in the ED with 5 ray.? Please keep the area surrounding the laceration clean and dry. Please keep the area out of the sunlight for the next 6 months to help prevent scarring.? If you develop redness or swelling at the site of your laceration please come back to the ER for a wound check. The CT scan of your head is normal and does not demonstrate bleed or skull fracture. Your tetanus vaccine was updated today. I recommend you take 600mg ibuprofen every 6 hours or tylenol 650mg every 6 hours as needed for pain. If needed, you can alternate these medications so that you take one medication every 3 hours. For example, at noon take ibuprofen, then at 3pm take tylenol, then at 6pm take ibuprofen. Please follow up with your primary care physician in 5-7 days for staple julieta alexis. You can also return to the ER or another urgent care facility for this service. Return to the Emergency Department if you experience discharge from your laceration, redness around your laceration, warmth around your laceration, fever, vomiting, numbness, tingling, or any other concerning symptoms. In the case of an emergency call 911. Prescriptions: No Action ondansetron 4 mg tablet,disintegrating 4 mg PO Q6H PRN (Reason: nausea and vomiting) Qty: 10 0RF clindamycin HCl 300 mg capsule 300 mg PO TID Qty: 14 0RF ondansetron HCl 4 mg tablet 4 mg PO Q6H PRN (Reason: nausea and vomiting) Qty: 10 0RF chxsjiwbqc-ytxttetmfzrlk-oito 50-325-40 mg tablet 1 tab PO Q6H PRN (Reason: haeadace) Qty: 20 0RF ibuprofen 400 mg tablet 400 mg PO Q6H PRN (Reason: pain) Qty: 20 0RF ondansetron 4 mg tablet,disintegrating 4 mg PO TID PRN (Reason: nausea and vomiting) 5 Days Qty: 10 0RF Stand Alone Forms: Work/School Release Interventions: ED Discharge Assessment Last Done: 07/28/24 14:51 Discharge Date/Time: 07/28/24 14:53 Print Language: Bangladeshi
[2024-07-28 11:59] VITALS: BP 112/48; PULSE 86; RESP 18; TEMP 36.8; O2SAT 100
[2024-07-28 12:00] VITALS: BP 112/48; PULSE 90; RESP 20; O2SAT 100; BMI 23.3
[2024-07-28] MEDS: Ketorolac Tromethamine 30 MG/ML VIAL IM (12:28)
[2024-07-28] MEDS: Diphth,Pertus(ACell),Tet Adult 0.5 ML SYRINGE IM (14:07)
--- OUTSIDE RECORDS SUMMARY | 2024-07-28 14:43 | XMS_ITS | Clinical Summary ---
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 Extracranial subcutaneous soft tissue inflammatory changes are present in the right parietal region. Mild reticulation of the adjacent subcutaneous fat is noted. No significant opacification of the visualized paranasal sinuses, mastoid air cells and middle ear cavities. CT/CT head/brain wo IV con IMPRESSION: *No intracranial abnormalities. *Right parietal extra-axial soft tissue inflammatory changes and soft tissue emphysematous changes. No calvarial fractures. Electronically signed by: Elio Saez MD 05/04/2024 03:12 AM EDT Dictated By: Elio Saez MD Signed By: <Electronically signed by Elio Saez MD in OV> 05/04/24 0312 DD/ 0131 TD/TT: 05/04/24 0141 Boring Machine Operator Vertical: JONATHAN [facility] External Provider IMG CT PROCEDURES Edited Result - Final from Last 3 Months Insurance [facility] C3 HSN FULL * Guarantor: Iqra Bustillos Account Type Relation to Patient Date of Phone Billing Address Personal/Family Self [address] Care Teams Transplanter Relationship Specialty Start Date End Date Keesha Hines MD [address] [place] [id number] PCP - General Family Medicine 03/25/23
--- OUTSIDE RECORDS SUMMARY | 2024-07-28 14:43 | XMS_ITS | Encounter Summary ---
Author Organization [employer] Address [address] [place] [address] Care Team Providers Care Supervisor Brine Name Role Phone Manav Tirado Primary Care Provider Unavail able Manav Tirado Primary Care Provider Unavail able Keesha Hines MD Primary Care Provider [phone] Reason for Visit * Reason Onset Date Comments New Patient Appt 11/24/2022 Encounter Details Date Type Department Care Team ([facility] st Contact Info) Description 11/24/2022 Telephone [facility] [address] [place] [address] Manav Tirado AGNP New Patient Appt Social History Tobacco Use Types Packs/Day Years Used Date Smoking Tobacco: Every Day Cigarettes Passive Smoke Exposure: Never Smokeless Tobacco: Current Comments Unknown Sex and Gender Information Value Date Recorded Sex Assigned at Female 05/04/2022 10:32 AM EDT Legal Sex Female 10:32 AM EDT Gender Identity Female 05/04/2022 10:32 AM EDT Sexual Orientation Lesbian or Forbes 05/04/2022 10 :32 AM EDT COVID-19 Exposure Response Date Recorded In the last 10 days, have yo u been in contact with someone who was confirmed or suspected to have Coronavirus/COVID-19? No / Unsure 10/28/2022 2:09 PM EDT documented as of this encounter Miscellaneous Notes * Telephone Encounter - Murphy Manuel - 11/24/2022 12:43 PM EDT PAR Murphy Schmidt called pt to r/s [facility] appt. Pt demographics and insurance information were verified. Pt reports no previous care. Pt reports the following medical conditions: Chronic Asthma. Pt is currently takes medication methadone at this time. Pt given [facility] appt with on 01/06/[address] Manav Tirado @ 10:30 am. Pt will be sent appt reminder card and medical release form and agrees to complete and to return to medical records prior to [facility] appt. documented in this encounter Plan of Treatment Not on file documented as of this encounter Visit Diagnoses Not on filedocumented in this encounter Care Teams Supervisor Brine Relationship Specialty Start Date End Date Manav Tirado AGNP PCP - General Family Medicine 08/05/22 12/02/22 Manav Tirado AGNP PCP - General Family Medicine 01/06/23 03/24/23 Keesha Hines MD [address] [place] [address] PCP - General Family Medicine 03/25/23 documented as of this encounter
--- OUTSIDE RECORDS SUMMARY | 2024-07-28 14:43 | XMS_ITS | Encounter Summary ---
Author Organization [employer] Address [address] [facility] [address] [place] [address] Care Team Providers Care Manager Of Health Name Role Phone Keesha Hines MD Primary Care Provider [phone] Encounter Details Date Type Department Care Team ([facility] st Contact Info) Description 02/21/2024 Orders Only [facility] MEDICINE [address] [place], [place] [phone] Keesha Hines MD [address] [place], [place] [phone] Nausea and vomiting, unspecified vomiting type (Primary Dx) Social History Tobacco Use Types Packs/Day Years Used Date Smoking Tobacco: Every Day Cigarettes Passive Smoke Exposure: Never Smokeless Tobacco: Current Alcohol Use Standard Drinks/Week Comments Never 0 [...] Recorded Patient Health Questionnaire-2 Score 0 02/18/2024 Comments Unknown Sex and Gender Information Value Date Recorded Sex Assigned at Female 05/04/2022 10:32 AM EDT Legal Sex Female 10:32 AM EDT Gender Identity Female 05/04/2022 10:32 AM EDT Sexual Orientation Lesbian or Forbes 05/04/2022 10 :32 AM EDT documented as of this encounter Plan of Treatment Scheduled Orders Name Type Priority Associated Diagnoses Orde r Schedule Helicobacter pylori, Urea Breath Test Lab Routine Nausea and vomiting, unspecified vomiting type Expected: 02/21/2024 (Approximate), Expires: 02/20/2025 documented as of this encounter Procedures Procedure Name Priority Date/Time Associated Diagnosis Comments CBC WITH AUTO DIFFERENTIAL Routine 03/27/2024 4:08 AM EDT Nausea and vomiting, unspecified vomiting type LIPASE Routine 03/27/2024 4:08 AM EDT Nausea and vomiting, unspecified vomiting type COMPREHENSIVE METABOLIC PANEL Routine 03/27/2024 4:08 AM EDT Nausea and vomiting, unspecified vomiting type SARS COV2/INFLUENZA A/B AND RSV RNA QL NAAT Routine 03/27/2024 3:15 AM EDT Nausea and vomiting, unspecified vomiting type documented in this encounter Results * Lipase (03/27/2024 4:08 AM EDT) Lipase 10 8 - 78 U/L [facility] 03/27/2024 4:08 AM EDT 03/27/2024 4:11 AM EDT us Generic External Data Provider LAB BLOOD ORDERAB LES Final Result Performing Organization Address City/State/[facility] Co de Phone Number [facility] [address] [place] [address] [phone] * (ABNORMAL) Comprehensive Metabolic Panel (03/27/2024 4:08 AM EDT) Sodium 144 135 - 145 mmol/L [facility] Potassium 3.9 3.3 - 5.1 mmol/L [facility] Chloride 107 96 - 108 mmol/L [facility] Carbon Dioxide 29 22 - 29 mmol/L [facility] Anion Gap 12 12 - 20 [facility] Urea Nitrogen (BUN) 14 9 - 16 mg/dL [facility] Creatinine, Serum 0.83 0.5 - 1.4 mg/dL [facility] Creatinine Clr Calc Pharmacy 87.6 [facility] Comment:Provided height and weight: 165.1 cm,61.235 kg.eGFR (calculated from the MDRD study equation) and eCrCl(calculated from the Cockcroft-Gault equation) are based ondifferent parameters and may not yield comparable results.If eCrCl result is absurd, please check patient'sheight/weight. Estimated Glomerular Filt Rate >60 [facility] Comment:NOTE: For -Am erican individuals, multiply the result by 1.210.Chronic Kidney Disease: Estimated GFR < 60 mL/min/1.83v1Cazbcq Kidney Disease: Estimated GFR < 15 mL/min/1.73m2 Glucose 122(H) 60 - 115 mg/dL [facility] Calcium 9.6 8.4 - 10.2 mg/dL [facility] Bilirubin, Total 0.5 0.0 - 1.0 mg/dL [facility] Aspartate Amino Transferase 26 5 - 31 U/L [facility] Alanine Aminotransferase 22 0 - 31 U/L [facility] Total Protein 6.4(L) 6.5 - 8.0 g/dL [facility] Albumin Level 4.0 3.5 - 5.0 g/dL [facility] Alkaline Phosphatase 40 39 - 117 U/L [facility] 03/27/2024 4:08 AM EDT 03/27/2024 4:11 AM EDT us Generic External Data Provider LAB BLOOD ORDERAB LES Final Result [facility] [address] [place] [address] [phone] * (ABNORMAL) CBC auto differential (03/27/2024 4:08 AM EDT) White Blood Count 10.6 4.8 - 10.8 X10*3/uL [facility] Red Blood Count 4.47 4.20 - 5.50 X10*6/uL [facility] Hemoglobin 13.1 12.0 - 16.0 g/dl [facility] Hematocrit 38.1 37.0 - 47.0 % [facility] Mean Corpuscular Volume 85.2 80.0 - 98.0 fL [facility] Mean Corpuscular Hemoglobin 29.3 27.0 - 33.0 pg [facility] Mean Corpuscular HGB Conc 34.4 31.0 - 35.0 g/dl [facility] Red Cell Distribution Width 12.7 11.0 - 16.0 % [facility] Platelet Count 251 160 - 400 X10*3/uL [facility] Mean Platelet Volume 9.3(L) 9.4 - 12.3 fL [facility] Neutrophils Percent Auto 85.4(H) 45 - 73 % [facility] Imm Gran Pct Auto 0.3 0.0 - 0.4 % [facility] Lymphocytes Percent Auto 10.4(L) 20 - 40 % [facility] Monocytes Percent Auto 2.7 2 - 11 % [facility] Eosinophils Percent Auto 0.4 0 - 4 % [facility] Basophils Percent Auto 0.8 0 - 2 % [facility] NRBC Pct Auto 0.0 0.0 - 0.2 /100WBC [facility] Neutrophils Absolute Auto 9.1(H) 2.0 - 8.3 x10*3/uL [facility] Imm Gran Abs Auto 0.03 0.00 - 0.03 X10*3/uL [facility] Lymphocytes Absolute Auto 1.1(L) 1.2 - 4.9 X10*3/uL [facility] Monocytes Absolute Auto 0.3 0.1 - 1.2 X10*3/uL [facility] Eosinophils Absolute Auto 0.0 0.0 - 0.4 X10*3/uL [facility] Basophils Absolute Auto 0.1 0.0 - 0.2 X10*3/uL [facility] NRBC Abs Auto 0.000 0.0 - 0.012 X10*3/uL [facility] 03/27/2024 4:08 AM EDT 03/27/2024 4:11 AM EDT us Generic External Data Provider LAB BLOOD ORDERAB LES Final Result [facility] [address] [place] [phone] * SARS-CoV-2 RNA, Influenza A/B, and RSV RNA, Ql NAAT (03/27/2024 3:15 AM EDT) Influenza A PCR NEGATIVE Negative [facility] Influenza B PCR NEGATIVE Negative [facility] Resp Syncy Virus RNA Qual PCR NEGATIVE Negative [facility] SARS COV2 PCR NEGATIVE Negative [facility] Comment:All test results mus t [...] use by authorized laboratories.Testing performed on the [employer] GeneXpert utilizingreal-time RT-PCR.All SARS CoV2 and positive influenza A/B results arereported to [facility]. 03/27/2024 3:15 AM EDT 03/27/2024 3:17 AM EDT us Generic External Data Provider LAB MICROBIOLOGY - GENERAL ORDERABLES Final Result [facility] [address] [place] [phone] documented in this encounter Visit Diagnoses Diagnosis Nausea and vomiting, unspecified vomiting type- Primary documented in this encounter Additional Health Concerns Assessment Noted Time PHQ-9 Depression Total Score: 9 02/18/20 24 2:40 PM EDT documented as of this encounter Care Teams Manager Of Health Relationship Specialty Start Date End Date Keesha Hines MD [address] [place] [address] PCP - General Family Medicine 03/25/23 documented as of this encounter
--- OUTSIDE RECORDS SUMMARY | 2024-07-28 14:43 | XMS_ITS | Encounter Summary ---
Author Organization [employer] Address [address] [facility] [address] [place] [address] Care Team Providers Care Road Supervisor Name Role Phone Keesha Hines MD Primary Care Provider [phone] Encounter Details Date Type Department Care Team ([facility] st Contact Info) Description 07/09/2024 Orders Only GENERIC EXTERNAL DATA DEPARTMENT Provider, Generic External Data Social History Tobacco Use Types Packs/Day Years [...] is your housing situation today? I have diptidena garcia 02/18/[address] you [...] as of this encounter Plan of Treatment Not on file documented as of this encounter Procedures Procedure Name Priority Date/Time Associated Diagnosis Comments URINALYSIS, COMPLETE, WITH REFLEX TO CULTURE Routine 07/09/2024 9:52 PM EST HCG, QL, URINE Routine 07/09/2024 9:52 PM EST SLIDE REVIEW Routine 07/09/2024 4:56 PM EST STREP A NUCLEIC ACID Routine 07/09/2024 4:56 PM EST SARS COV2/INFLUENZA A/B AND RSV RNA QL NAAT Routine 07/09/2024 4:56 PM EST CBC WITH AUTO DIFFERENTIAL Routine 07/09/2024 4:56 PM EST HCG, TOTAL, QN Routine 07/09/2024 4:56 PM EST COMPREHENSIVE METABOLIC PANEL Routine 07/09/2024 4:56 PM EST documented in this encounter Results * (ABNORMAL) Urinalysis, Complete, with Reflex to Culture (07/09/2024 9:52 PM EST) Color Urine Dark Yellow [facility] Appearance Urine Hazy [facility] PH 5.5 5.0 - 9.0 [facility] Glucose Urine UA Negative Negative mg/dL [facility] Urine Blood Negative Negative [facility] Specific [place] - Urine >=1.030(H) 1.005 - 1.025 [facility] Urine Protein 100 (2+)(A) Neg-Trace mg/dL [facility] Urine Ketones 15 Negative mg/dL [facility] Nitrite Urine Negative Negative [facility] Leukocyte Esterase Urine Negative Negative [facility] RBC Urine 0-2 0 - 2 /HPF [facility] Urine WBC 0-5 0 - 5 /HPF [facility] Urine Squamous Epithelial Cell 6-10 0 - 2 /HPF [facility] Urine Bacteria Trace None Seen [facility] Hyaline Casts, Urine 3-5 0 - 2 /LPF [facility] 07/09/2024 9:52 PM EST 07/09/2024 9:56 PM EST Narrative [facility] - 07/09/2024 10:38 PM EST [id number], Clean Catch us Generic External Data Provider LAB URINE ORDERAB LES Edited Result - Final Performing Organization Address [facility] Co de Phone Number [facility] [address] [place] [phone] * HCG, Qualitative, Urine (07/09/2024 9:52 PM EST) Urine NEGATIVE NEGATIVE [facility] Comment:This test was develo ped to detect early . Falsenegative results may occur after the 5th - 7th week ofpregnancy when using this test method. If clinicallyindicated, consider a serum hCG. 07/09/2024 9:52 PM EST 07/09/2024 9:56 PM EST us Generic External Data Provider LAB URINE ORDERAB LES Final Result Performing Organization Address [facility] Co de Phone Number [facility] [address] [place] [phone] * Slide Review (07/09/2024 4:56 PM EST) Slide Review VERIFIED [facility] 07/09/2024 4:56 PM EST 07/09/2024 5:00 PM EST Generic External Data Provider LAB BLOOD ORDERAB LES Final Result Performing Organization Address [facility] Co de Phone Number [facility] [address] [place] [phone] * (ABNORMAL) SARS-CoV-2 RNA, Influenza A/B, and RSV RNA, Ql NAAT (07/09/2024 4:56 PM EST) [facility] Influenza A PCR POSITIVE(A) Negative [facility] Influenza B PCR NEGATIVE Negative [facility] Resp Syncy Virus RNA Qual PCR NEGATIVE Negative [facility] SARS COV2 PCR NEGATIVE Negative [facility] Comment:All test results mus [...] use by authorized laboratories.Testing performed on the [employer] GeneXpert utilizingreal-time RT-PCR.All SARS CoV2 and positive influenza A/B results arereported to [facility]. 07/09/2024 4:56 PM EST 07/09/2024 5:00 PM EST us Generic External Data Provider LAB MICROBIOLOGY - GENERAL ORDERABLES Final Result Performing Organization Address [facility] Co de Phone Number [facility] [address] [place] [address] [phone] * hCG, Total, Quantitative (07/09/2024 4:56 PM EST) [facility] HCG Quantitative <2 mIU/mL [facility] Comment:Weeks post LMP Appro ximate hCG(Last Menstrual Period) Range (mIU/ml)3 - 4 weeks 9 - 1304 - 5 weeks 75 - 2,6005 - 6 weeks 850 - 20,8006 - 7 weeks 4000 - 100,2007 - 12 weeks 11,500 - 289,54394 - 16 weeks 18,300 - 137,44027 - 29 weeks (2nd trimester) 1,400 - 53,98332 - 41 weeks (3rd trimester) 940 - [...] Provider LAB BLOOD ORDERAB LES Final Result [facility] [address] [place] [address] [phone] * (ABNORMAL) Comprehensive Metabolic Panel (07/09/2024 4:56 PM EST) Sodium 139 135 - 145 mmol/L [facility] Potassium 3.4 3.3 - 5.1 mmol/L [facility] Chloride 107 96 - 108 mmol/L [facility] Carbon Dioxide 20(L) 22 - 29 mmol/L [facility] Anion Gap 15 12 - 20 [facility] Urea Nitrogen (BUN) 12 9 - 16 mg/dL [facility] Creatinine, Serum 0.76 0.5 - 1.4 mg/dL [facility] Creatinine Clr Calc Pharmacy 95.6 [facility] Comment:Provided height and weight: 165.1 cm,61.235 kg.eGFR (calculated from the MDRD study equation) and eCrCl(calculated from the Cockcroft-Gault equation) are based ondifferent parameters and may not yield comparable results.If eCrCl result is absurd, please check patient'sheight/weight. Estimated Glomerular Filt Rate >60 [facility] Comment:Chronic Kidney Disea se: Estimated GFR < 60 mL/min/1.22x2Gvnstr Kidney Disease: Estimated GFR < 15 mL/min/1.73m2 Glucose 113 60 - 115 mg/dL [facility] Calcium 9.5 8.4 - 10.2 mg/dL [facility] Bilirubin, Total 0.5 0.0 - 1.0 mg/dL [facility] Aspartate Amino Transferase 28 5 - 31 U/L [facility] Alanine Aminotransferase 20 0 - 31 U/L [facility] Total Protein 7.1 6.5 - 8.0 g/dL [facility] Albumin Level 4.3 3.5 - 5.0 g/dL [facility] Alkaline Phosphatase 41 39 - 117 U/L [facility] 07/09/2024 4:56 PM EST 07/09/2024 5:00 PM EST Generic External Data Provider LAB BLOOD ORDERAB LES Final Result Performing Organization Address [facility] Co de Phone Number [facility] [address] [place] [address] [phone] * Strep A Nucleic Acid (07/09/2024 4:56 PM EST) Pathologist [facility] [employer] SERIAL# [id number] [facility] Strep A Nucleic Acid Negative Negative [facility] Comment:All test results mus t [...] GENERAL ORDERABLES Final Result Performing Organization Address [facility]/ZIP Co de Phone Number [facility] [address] [place] [address] [phone] * (ABNORMAL) CBC auto differential (07/09/2024 4:56 PM EST) White Blood Count 8.9 4.8 - 10.8 X10*3/uL [facility] Red Blood Count 4.61 4.20 - 5.50 X10*6/uL [facility] Hemoglobin 13.5 12.0 - 16.0 g/dl [facility] Hematocrit 39.0 37.0 - 47.0 % [facility] Mean Corpuscular Volume 84.6 80.0 - 98.0 fL [facility] Mean Corpuscular Hemoglobin 29.3 27.0 - 33.0 pg [facility] Mean Corpuscular HGB Conc 34.6 31.0 - 35.0 g/dl [facility] Red Cell Distribution Width 12.4 11.0 - 16.0 % [facility] Platelet Count 186 160 - 400 X10*3/uL [facility] Mean Platelet Volume 9.5 9.4 - 12.3 fL [facility] Neutrophils Percent Auto 92.0(H) 45 - 73 % [facility] Imm Gran Pct Auto 0.6(H) 0.0 - 0.4 % [facility] Lymphocytes Percent Auto 2.6(L) 20 - 40 % [facility] Monocytes Percent Auto 4.2 2 - 11 % [facility] Eosinophils Percent Auto 0.1 0 - 4 % [facility] Basophils Percent Auto 0.5 0 - 2 % [facility] NRBC Pct Auto 0.0 0.0 - 0.2 /100WBC [facility] Neutrophils Absolute Auto 8.2 2.0 - 8.3 x10*3/uL [facility] Imm Gran Abs Auto 0.05(H) 0.00 - 0.03 X10*3/uL [facility] Lymphocytes Absolute Auto 0.2(L) 1.2 - 4.9 X10*3/uL [facility] Monocytes Absolute Auto 0.4 0.1 - 1.2 X10*3/uL [facility] Eosinophils Absolute Auto 0.0 0.0 - 0.4 X10*3/uL [facility] Basophils Absolute Auto 0.0 0.0 - 0.2 X10*3/uL [facility] NRBC Abs Auto 0.000 0.0 - 0.012 X10*3/uL [facility] 07/09/2024 4:56 PM EST 07/09/2024 5:00 PM EST us Generic External Data Provider LAB BLOOD ORDERAB LES Edited Result - Final [facility] [address] [place] [phone] documented in this encounter Visit Diagnoses Not on filedocumented in this encounter Additional Health Concerns Assessment Noted Time PHQ-9 Depression Total Score: 9 02/18/20 24 2:40 PM EDT documented as of this encounter Care Teams Road Supervisor Relationship Specialty Start Date End Date Keesha Hines MD [address] [place] [phone] PCP - General Family Medicine 03/25/23 documented as of this encounter
--- OUTSIDE RECORDS SUMMARY | 2024-07-28 14:43 | XMS_ITS | Encounter Summary ---
Author Organization [email or web address] Address [address] [facility] [address] [place] [address] Care Team Providers Care Buhr Mill Operator Name Role Phone Keesha Hines MD Primary Care Provider [phone] Reason for Visit * Reason Onset Date Comments Nurse Triage 02/17/2024 Encounter Details Date Type Department Care Team ([facility] st Contact Info) Description 02/17/2024 Telephone [facility] [address] [place], [place] [phone] Keesha Hines MD [address] [place], [place] [phone] Nurse Triage Social History Tobacco Use Types Packs/Day Years [...] AM EDT documented as of this encounter Miscellaneous Notes * Telephone Encounter - Marcelina Jaramillo - 02/17/2024 9:45 AM EDT Symptoms: Nausea But No Vomiting, Weakness Outcome: Schedule a same-day appointment or talk to a nurse or provider today Reason: Caller denied all higher acuity questions The caller accepted this outcome documented in this encounter Plan of Treatment Not on file documented as of this encounter Visit Diagnoses Not on filedocumented in this encounter Additional Health Concerns Assessment Noted Time PHQ-9 Depression Total Score: 5 01/07/20 23 11:49 AM EDT documented as of this encounter Care Teams Buhr Mill Operator Relationship Specialty Start Date End Date Keesha Hines MD [address] [place] [phone] PCP - General Family Medicine 03/25/23 documented as of this encounter
[2024-07-28 14:51] VITALS: BP 118/60; PULSE 83; RESP 18; TEMP 36.5; O2SAT 99
== END 2024-07-28 14:53 | disposition home or self-care (01) ==
PROVIDERS: Emergency Provider Emergency Medicine
DX: S01.01XA Laceration without foreign body of scalp, initial encounter (principal); R51.9 Headache, unspecified; Y28.9XXA Contact with unspecified sharp object, undetermined intent, initial encounter; Y93.89 Activity, other specified; Y92.003 Bedroom of unspecified non-institutional (private) residence as the place of occurrence of the external cause; Y99.8 Other external cause status
CPT/HCPCS: 12031; 70450; 90471; 90715; 96372; 99283; 99284; J1885

== ENCOUNTER → 2024-07-28 12:05 | Outpatient (BNV) | payer MEDICAID, SELFPAY | PROVIDERS: Emergency Provider Emergency Medicine; Visit Provider Radiology Diagnostic Radiology | DX: S01.91XA Laceration without foreign body of unspecified part of head, initial encounter (principal) | CPT/HCPCS: 70450 ==

== ENCOUNTER 2024-08-05 16:04 | Emergency (ER) | payer MEDICAID, SELFPAY ==
[2024-08-05 16:14] VITALS: BP 128/69; PULSE 87; RESP 18; TEMP 36.6; O2SAT 98; BMI 21.8
--- NOTE | 2024-08-05 16:18 | ED_ITS ---
HPI - Wound/Laceration General Chief Complaint: Wound/Laceration Stated Complaint: staple removal Time Seen by Provider: 08/05/24 16:17 Source: patient and old records reviewed Mode of arrival: ambulatory Limitations: no limitations History of Present Illness ED Provider: RUPINDER STEELE narrative: 33 yo female with PMH of recent head injury 07/28/24 here with c/o persistent concussive symptoms as well as staple removal that is healing well. she has done well other than no brain rest and persistent headache. Onset (ago): day(s) (07/28) Location: other (head) Place: other Patient tetanus UTD: Yes Context: accidental Associated symptoms: none Related Data Previous Rx's ?Medication ?Instructions ?Recorded ondansetron 4 mg disintegrating 4 mg PO Q6H PRN nausea and 07/04/21 tablet vomiting #10 tabs oflfugzgzq-cacjnwuhfmxht-oqnnvjhs 1 tab PO Q6H PRN haeadace #20 tabs 03/27/24 50 mg-325 mg-40 mg tablet ondansetron HCl 4 mg tablet 4 mg PO Q6H PRN nausea and 03/27/24 vomiting #10 tabs clindamycin HCl 300 mg capsule 300 mg PO TID #14 caps 05/04/24 ibuprofen 400 mg tablet 400 mg PO Q6H PRN pain #20 tabs 07/09/24 ondansetron 4 mg disintegrating 4 mg PO TID PRN nausea and 07/10/24 tablet vomiting 5 days #10 tabs ibuprofen 600 mg tablet 600 mg PO Q6H PRN pain #30 tabs 08/05/24 ondansetron 4 mg disintegrating 4 mg PO Q8H PRN nausea and 08/05/24 tablet vomiting #20 tabs Allergies Allergy/AdvReac Type Severity Reaction Status Date / Time penicillin V Allergy Severe anaphylaxis Verified 08/05/24 16:16 Penicillins [PENICILLINS] Allergy Unknown DIFFICULTY Verified 08/05/24 16:16 BREATHING Review of Systems Review of Systems: Constitutional : No Fever, No Chills, Cardiovascular : No Chest Pain, No SOB Respiratory : No Dyspnea Gastrointestinal : No abdominal pain Musculoskeletal : No Joint Swelling Skin : No rash, positive skin laceration Neuro : No Weakness, No Numbness all other systems reviewed and are negative PMFSH Past Medical History Medical History Asthma Social History Social History Alcohol intake: current Alcohol intake frequency: holidays/special occasions only Substance Use Type: Marijuana Physical Exam Vital Signs: Vital Signs: Last Vital Signs Temp 98 F 08/05/24 16:14 Pulse 87 08/05/24 16:14 Resp 18 08/05/24 16:14 BP 128/69 08/05/24 16:14 Pulse Ox 98 08/05/24 16:14 BMI result Body Mass Index 21.8 Appearance: Alert. Oriented X3. No acute distress. Eyes: Pupils equal, round and reactive to light. ENT: Pharynx normal. L scalp well healed [address] no signs of infection Neck: Normal inspection. CVS: Pulses normal. Respiratory: No respiratory distress. Abdomen: atraumatic Skin: Skin warm and dry. Normal skin color. Extremities: No lower extremity edema. Neuro: Oriented X 3. No motor deficit. No sensory deficit. CN2-12 intact Medical Decision Making Medical Decision Making MDM Narrative: 33 yo female recent head injury admittedly did not do concussion protocol still having symptoms will place her in again for brain rest also removal of 5 ray healed intact no signs of infection Differential Diagnosis Differential Diagnoses: The differential diagnosis associated with the presentation includes concussion, healed scalp laceration External Record Review External record reviewed: Outpatient record and Prior outpatient radiology Prescription Management I considered prescription management with: Pain Medication and Other Procedures Procedure Narrative Procedure Narrative: removed 5 ray no issue intact c/d/i no signs of infection tolerating without issue Discharge Plan Discharge Clinical Impression: Encounter for removal of ray, Post concussion syndrome Patient Disposition: Home, Self-Care Instructions: Post Concussion Syndrome (ED), Staple Care (ED) Additional Instructions: monitor for redness, yellow drainage, fevers or any other concerns brain rest for the next 4 days - no video games, no exercise, no alcohol no activities that cause headaches - stay off your phone Prescriptions: New ibuprofen 600 mg tablet 600 mg PO Q6H PRN (Reason: pain) Qty: 30 0RF ondansetron 4 mg tablet,disintegrating 4 mg PO Q8H PRN (Reason: nausea and vomiting) Qty: 20 0RF No Action ondansetron 4 mg tablet,disintegrating 4 mg PO Q6H PRN (Reason: nausea and vomiting) Qty: 10 0RF clindamycin HCl 300 mg capsule 300 mg PO TID Qty: 14 0RF ondansetron HCl 4 mg tablet 4 mg PO Q6H PRN (Reason: nausea and vomiting) Qty: 10 0RF lxjqmgdxbq-abmgnrsvtaczl-ifxm 50-325-40 mg tablet 1 tab PO Q6H PRN (Reason: haeadace) Qty: 20 0RF ibuprofen 400 mg tablet 400 mg PO Q6H PRN (Reason: pain) Qty: 20 0RF ondansetron 4 mg tablet,disintegrating 4 mg PO TID PRN (Reason: nausea and vomiting) 5 Days Qty: 10 0RF Print Language: Swedish
[2024-08-05 16:40] VITALS: BP 128/69; PULSE 87; RESP 18; TEMP 36.6; O2SAT 98
== END 2024-08-05 16:41 | disposition home or self-care (01) ==
PROVIDERS: Emergency Provider Emergency Medicine; PCP General Practice
DX: R51.9 Headache, unspecified (principal); F07.81 Postconcussional syndrome; Z48.02 Encounter for removal of sutures; S01.01XD Laceration without foreign body of scalp, subsequent encounter; X58.XXXD Exposure to other specified factors, subsequent encounter; J45.909 Unspecified asthma, uncomplicated; F12.90 Cannabis use, unspecified, uncomplicated
CPT/HCPCS: 99282; 99283

== ENCOUNTER 2024-12-19 09:32 | Emergency (ER) | payer MEDICAID, SELFPAY ==
--- NOTE | ~2024-12-19 | XR_ITS ---
EXAMINATION: XR RIBS, RIGHT CLINICAL INFORMATION: pain, injury COMPARISON: None available. TECHNIQUE: PA chest, and 3 views of the right ribs were obtained. FINDINGS: Lungs are clear. No consolidation, pneumothorax, or pleural effusion. The cardiomediastinal silhouette and pulmonary vasculature are normal. Osseous structures are unremarkable. Ribs are intact. No fractures are identified. XR/XR ribs RT min 3V w CXR1V IMPRESSION: No acute findings of the chest or right ribs. Electronically signed by: Raymond Johnson MD 12/19/2024 10:25 AM EDT
[2024-12-19 09:45] VITALS: BP 120/70; PULSE 76; RESP 16; TEMP 36.7; O2SAT 100; BMI 21.5
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
[2024-12-19 09:50] VITALS: BP 113/68; PULSE 81; RESP 16; O2SAT 99
[2024-12-19 10:38] VITALS: BP 113/68; PULSE 81; RESP 16; TEMP 36.7; O2SAT 99
--- OUTSIDE RECORDS SUMMARY | 2024-12-19 11:34 | XMS_ITS | Encounter Summary ---
Author Organization [employer] Address [address] [place] [address] Care Team Providers Care Newspaper Peddler Name Role Phone Keesha Hines MD Primary Care Provider [phone] Reason for Visit * Reason Onset Date Comments Nurse Triage 08/03/2024 Encounter Details Date Type Department Care Team ([facility] st Contact Info) Description 08/03/2024 Telephone [facility] [address] [place], [place] [id number] Keesha Hines MD [address] [place] [address] Nurse Triage Social History Tobacco Use Types [...] encounter Miscellaneous Notes * Telephone Encounter - Pravin Leahy - 08/03/2024 3:27 PM EST Symptoms: Sleeping Difficulty, Eye Pain - Not From Injury Outcome: Schedule an urgent appointment (within 4 hours) or talk to a nurse or provider soon Reason: Getting worse Please contact pt at [phone]. documented in this encounter Plan of Treatment Upcoming Encounters Date Type Department Care Team (Late st Contact Info) Description 01/23/2025 1:00 PM EDT Office Visit [facility] [address] [place] [address] Mohini Castaneda, OD [address] [place] [address] documented as of this encounter Visit Diagnoses Not on filedocumented in this encounter Additional Health Concerns Assessment Noted Time PHQ-9 Depression Total Score: 9 02/18/20 24 2:40 PM EDT documented as of this encounter Care Teams Newspaper Peddler Relationship Specialty Start Date End Date Keesha Hines MD [address] [place] [address] PCP - General Family Medicine 03/25/23 documented as of this encounter
== END 2024-12-19 10:39 | disposition home or self-care (01) ==
PROVIDERS: Emergency Provider Emergency Medicine
DX: R07.81 Pleurodynia (principal); R07.89 Other chest pain
CPT/HCPCS: 71101; 99283; 99284

== ENCOUNTER → 2024-12-19 09:51 | Outpatient (BNV) | payer MEDICAID, SELFPAY | PROVIDERS: Emergency Provider Emergency Medicine; Visit Provider Radiology Diagnostic Radiology | DX: R07.82 Intercostal pain (principal) | CPT/HCPCS: 71101 ==

== ENCOUNTER 2025-02-02 03:23 | Emergency (ER) | payer MEDICAID, SELFPAY ==
[2025-02-02 03:41] VITALS: BP 135/68; PULSE 73; RESP 22; TEMP 36.3; O2SAT 100
[2025-02-02 04:04] LABS: Hematocrit 36.9 % (37.0-47.0); Hemoglobin 12.9 g/dl (12.0-16.0); Imm Gran Abs Auto 0.09 X10*3/uL (0.00-0.03); Imm Gran Pct Auto 0.5 % (0.0-0.4); Lymphocytes Absolute Auto 3.2 X10*3/uL (1.2-4.9); MANUAL DIFF FLAG NO; Mean Corpuscular HGB Conc 35.0 g/dl (31.0-35.0); Mean Corpuscular Hemoglobin 29.1 pg (27.0-33.0); Mean Corpuscular Volume 83.3 fL (80.0-98.0); NRBC Abs Auto 0.000 X10*3/uL (0.0-0.012); NRBC Pct Auto 0.0 /100WBC (0.0-0.2); Platelet Count 287 X10*3/uL (160-400); Red Blood Count 4.43 X10*6/uL (4.20-5.50); White Blood Count 18.0 X10*3/uL (4.8-10.8)
[2025-02-02 04:19] LABS: Alanine Aminotransferase 13 U/L (0-31); Albumin Level 4.4 g/dL (3.5-5.0); Alkaline Phosphatase 40 U/L (39-117); Anion Gap 14 (12-20); Aspartate Amino Transferase 22 U/L (5-31); Blood Urea Nitrogen 15 mg/dL (9-16); Calcium 9.5 mg/dL (8.4-10.2); Carbon Dioxide 27 mmol/L (22-29); Chloride 107 mmol/L (96-108); Creatinine Clr Calc Pharmacy 82.0; Estimated Glomerular Filt Rate > 60; Potassium 3.8 mmol/L (3.3-5.1); Sodium 144 mmol/L (135-145); Total Protein 6.6 g/dL (6.5-8.0)
[2025-02-02 04:40] LABS: Resp Syncy Virus RNA Qual PCR NEGATIVE (Negative); SARS COV2 PCR INHOUSE NEGATIVE (Negative)
[2025-02-02 05:53] VITALS: BP 108/72; PULSE 72; RESP 20; TEMP 36.5; O2SAT 97
--- NOTE | 2025-02-02 05:57 | PC.NURSE ---
Pt awaiting primary eval in the room. This RN and additional staff have been called into the room numerous times. The pt can be found reporting the presence of headache (requesting excedrin) and dehydration (reporting that she needs fluids) and appears restless. The pt is hemodynamically stable (not hypotensive and is not tachycardic) at this time, has been seen putting her finger down her throat numerous times to induce vomiting as she states it feels like something is stuck in there , the pt has been spitting into the bag but not actively vomiting although she continues to endorse extreme nausea. She has asked for beverage items numermous times but was advised to remain NPO until evaluated by a provider and/or her nausea/wrenching subsides and she was noted to yell at staff when they informed her they would have to check with the nurse. The pt is understandably frustrated, states all she needs is IVF and exedrin for her headache/migraine. The pt was assisted with the use of green mouth swabs and ice water. Pt with call abreu in reach, she is alert, oriented, conversing in full/complete sentences without distress noted.
--- NOTE | 2025-02-02 06:42 | ED_ITS ---
HPI - Nausea/Vomiting/Diarrhea General Chief complaint: Nausea/Vomiting/Diarrhea Stated complaint: vomiting Time Seen by Provider: 02/02/25 06:41 Source: patient Mode of arrival: ambulatory Limitations: no limitations History of Present Illness ED Provider: Dr. Prince Peterson HPI Narrative: 34-year-old female with a history of 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 The patient states that she has been sick for proximally 3 days. She complains of constant , sharp, 6/10, epigastric pain. She states she has not been able to eat or drink for 3 days secondary to nausea with multiple episodes of vomit. She denied diarrhea. She also states she is feeling very weak and fatigued secondary to not eating and drinking. Patient states she has chronic headaches and over the last 2-3 days she has developed a constant, pressure-like sensation behind her eyes which is 7/10 at its worst. Patient states he has headache is a secondary to multiple head injuries . She states she has felt hot and cold but did not take her temperature at home. Related Data Previous Rx's ?Medication ?Instructions ?Recorded ondansetron 4 mg disintegrating 4 mg PO Q6H PRN nausea and 07/04/21 tablet vomiting #10 tabs kjamkraafu-oswlmgvuxglgf-mkcububt 1 tab PO Q6H PRN hae adace #20 tabs 03/27/24 50 mg-325 mg-40 mg tablet ondansetron HCl 4 mg tablet 4 mg PO Q6H PRN nausea and 03/27/24 vomiting #10 tabs clindamycin HCl 300 mg capsule 300 mg PO TID #14 caps 05/04/24 ibuprofen 400 mg tablet 400 mg PO Q6H PRN pain #20 t abs 07/09/24 ondansetron 4 mg disintegrating 4 mg PO TID PRN nausea and 07/10/24 tablet vomiting 5 days #10 tabs ibuprofen 600 mg tablet 600 mg PO Q6H PRN pain #30 t abs 08/05/24 ondansetron 4 mg disintegrating 4 mg PO Q8H PRN nausea and 08/05/24 tablet vomiting #20 tabs acetaminophen 500 mg tablet 1,000 mg (2 x 500 mg) PO Q 6H PRN 02/02/25 (Tylenol Extra Strength) fever or pain #20 tabs aluminum hydrox-magnesium carb 254 10 ml PO QID PRN dy spepsia #355 mL 02/02/25 mg-237.5 mg/5 mL oral suspension (Gaviscon Extra Strength) omeprazole 20 mg capsule,delayed 20 mg PO DAILY 30 day s #30 caps 02/02/25 release ondansetron 4 mg disintegrating 4 mg PO Q6-8H PRN naus ea and 02/02/25 tablet vomiting #14 tabs Allergies Allergy/AdvReac Type Severity Reaction Status Date / Time penicillin V Allergy Severe anaphylaxis Verified 02/02/25 03:45 Penicillins (PENICILLINS) Allergy Unknown DIFFICULTY Verified 02/02/25 03:45 BREATHING Review of Systems 2 Review of Systems: Yes all other systems are reviewed and are negative [facility] Past Medical History Medical History Asthma Social History Social History Alcohol intake: current Alcohol intake frequency: holidays/special occasions only Smoked in Last 30 Days: Yes Use of substances other than those prescribed or required for medical reasons: Yes Substance Use Type: Marijuana Advance Directives: No Advance Directives Information Provided: Yes Physical Exam 2 Vital Signs: Vital Signs: Last Vital Signs Temp 97.9 F 02/02/25 12:30 Pulse 57 02/02/25 12:30 Resp 16 02/02/25 12:30 BP 102/63 02/02/25 12:30 Pulse Ox 100 02/02/25 12:30 O2 Del Method Room Air 02/02/25 12:30 BMI result Body Mass Index 20.0 Vital signs were normal Exam: General: Awake, alert in no distress Head: Normocephalic, atraumatic EENT: PERRL, Lids normal, sclera normal, conjunctiva normal, nose normal , ears normal, throat without erythema or exudates Neck: Supple, no adenopathy Lung: breath sounds symmetric, no wheezing, rales or rhonchi Chest: symmetric movement, nontender Heart: regular rate and rhythm, normal S1, S2 no murmurs or rubs Abdomen: soft, moderate epigastric tenderness, no rebound, no voluntary or involuntary guarding, nondistended, normal bowel sounds Back: no vertebral tenderness, no CVAT Extremities: no deformities, moves all extremities symmetrically Neuro: Awake, alert, oriented, normal speech, cranial nerves intact, moves all extremities symmetrically Psych: Pleasant, cooperative Medications Administered Discontinued Medications Generic Name Dose Route Start Last Admin Trade Name Evan PRN Reason Stop Dose Admin Diphenhydramine HCl 50 mg 02/02/25 07:48 02/02/25 08:08 Diphenhydramine Hcl 50 Mg/Ml Vial IVPUSH 02/02/25 07:49 50 mg ONCE STA Administration Sodium Chloride 1,000 mls @ 999 mls/hr 02/02/25 07:48 02/02/25 09:09 Ns IV 02/02/25 08:48 Infused .Q1H1M STA Infusion Sodium Chloride 1,000 mls @ 999 mls/hr 02/02/25 11:22 02/02/25 12:35 Ns IV 02/02/25 12:22 Infused .Q1H1M STA Infusion Lidocaine HCl 5 ml 02/02/25 07:11 02/02/25 08:10 Lidocaine Hcl 1 % Mpf 5 Ml Vial INFILTRATI 02/02/25 07:12 5 ml ONCE STA Administration Metoclopramide HCl 10 mg 02/02/25 07:48 02/02/25 08:08 Metoclopramide Hcl 10 Mg/2 Ml Vial IVPUSH 02/02/25 07:49 10 mg ONCE STA Administration Morphine Sulfate 4 mg 02/02/25 07:48 02/02/25 08:08 Morphine Sulfate 4 Mg/Ml Cartridge IVPUSH 02/02/25 07:49 4 mg ONCE STA Administration Protocol Morphine Sulfate 4 mg 02/02/25 11:22 02/02/25 11:34 Morphine Sulfate 4 Mg/Ml Cartridge IVPUSH 02/02/25 11:23 4 mg ONCE STA Administration Protocol Ondansetron HCl 4 mg 02/02/25 03:49 02/02/25 03:52 Ondansetron Odt 4 Mg Tab.Rapdis TRANSLINGU 02/02/25 03:50 4 mg ONCE ONE Administration Ondansetron HCl 4 mg 02/02/25 07:48 02/02/25 08:10 Ondansetron Odt 4 Mg Tab.Rapdis TRANSLINGU 02/02/25 07:49 4 mg ONCE STA Administration Procedures EJ/Peripheral Line Neck R: Time Out Performed: No Skin Cleansed in Sterile Fashion: Yes Size (gauge): 18 IV Secured and Dressing Applied: Yes Patient Tolerated Procedure: well, no complications and other (There was good blood return from the IV and the IV flushed easily) Medical Decision Making Medical Decision Making MDM Narrative: 34-year-old female with a history of 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 The patient states that she has been sick for proximally 3 days. She complains of constant , sharp, 6/10, epigastric pain. She states she has not been able to eat or drink for 3 days secondary to nausea with multiple episodes of vomit. She denied diarrhea. She also states she is feeling very weak and fatigued secondary to not eating and drinking. Patient states she has chronic headaches and over the last 2-3 days she has developed a constant, pressure-like sensation behind her eyes which is 7/10 at its worst. Patient states he has headache is a secondary to multiple head injuries . She states she has felt hot and cold but did not take her temperature at home. Physical examination revealed epigastric tenderness otherwise was unremarkable. Differential diagnosis: ?Includes but is not limited to gastritis, pancreatitis, viral syndrome, COVID-19, influenza, RSV, anemia, electrolyte abnormalities Course: 07:31 My independent interpretation patient's laboratory evaluation is as follows: WBC elevated 18,000. Normocytic anemia with an H&H of 12.9 and 36.9. Glucose elevated 124. LFTs were normal. Lipase was normal. COVID-19, influenza and RSV were negative Patient vomited while I was in the room and I ordered Zofran 4 mg ODT, this is her 2nd dose. Nursing staff had difficulty establish IV access therefore I placed 18 gauge IV catheter in the patient's right EJ. Patient was ordered to get morphine 4 mg IV, Reglan 10 mg IV and Benadryl 50 mg IV. I also ordered normal saline IV x1 L 11:24 Patient states that her nausea vomiting abdominal pain improved but she still is having headache. Therefore she was ordered to get a 2 L of normal saline IV x1 L and morphine 4 mg IV. 14:08 The patient is feeling better. Patient's mother the pick her up at 14:30 hours therefore the patient will be discharged. Admission/Observation Consideration of admission/observation: Escalation of care including admission/observation considered (Yes) Lab Data MDM Lab Attestation statement: I reviewed the patient's lab results. 02/02/25 03:57 02/02/25 03:58 Labs: Lab Results 02/02/25 02/02/25 02/02/25 Range/Units 03:57 03:58 03:59 WBC 18.0 H (4.8-10.8) X10*3/uL RBC 4.43 (4.20-5.50) X10*6/uL Hgb 12.9 (12.0-16.0) g/dl Hct 36.9 L (37.0-47.0) % MCV 83.3 (80.0-98.0) fL MCH 29.1 (27.0-33.0) pg MCHC 35.0 (31.0-35.0) g/dl RDW 13.2 (11.0-16.0) % Plt Count 287 D (160-400) X10*3/uL MPV 9.2 L (9.4-12.3) fL Immature Gran % (Auto) 0.5 H (0.0-0.4) % Neut % (Auto) 74.9 H (45-73) % Lymph % (Auto) 17.6 L (20-40) % Lucas % (Auto) 5.0 (2-11) % Eos % (Auto) 1.3 (0-4) % Baso % (Auto) 0.7 (0-2) % Lymph # (Auto) 3.2 (1.2-4.9) X10*3/uL Lucas # (Auto) 0.9 (0.1-1.2) X10*3/uL Eos # (Auto) 0.2 (0.0-0.4) X10*3/uL Baso # (Auto) 0.1 (0.0-0.2) X10*3/uL Abs Immat Gran (auto) 0.09 H (0.00-0.03) X10*3/uL Absolute Neuts (auto) 13.5 H (2.0-8.3) x10*3/uL Absolute Nucleated RBC 0.000 (0.0-0.012) X10*3/uL Nucleated RBC % (auto) 0.0 (0.0-0.2) /100WBC Sodium 144 (135-145) mmol/L Potassium 3.8 (3.3-5.1) mmol/L Chloride 107 (96-108) mmol/L Carbon Dioxide 27 (22-29) mmol/L Anion Gap 14 (12-20) BUN 15 (9-16) mg/dL Creatinine 0.84 (0.5-1.4) mg/dL Estim Creat Clear Calc 82.0 Estimated GFR > 60 Random Glucose 124 H (60-115) mg/dL Calcium 9.5 (8.4-10.2) mg/dL Total Bilirubin 0.3 (0.0-1.0) mg/dL AST 22 (5-31) U/L ALT 13 (0-31) U/L Alkaline Phosphatase 40 (39-117) U/L Total Protein 6.6 (6.5-8.0) g/dL Albumin 4.4 (3.5-5.0) g/dL Lipase 15 (8-78) U/L Beta HCG, Quant < 2 mIU/mL Influenza Type A (PCR) NEGATIVE (Negative) Influenza Type B (PCR) NEGATIVE (Negative) RSV RNA Qual (PCR) NEGATIVE (Negative) SARS-CoV-2 RNA (RT-PCR) NEGATIVE (Negative) Discharge Plan Discharge Clinical Impression: Gastritis, Nausea & vomiting, Acute dehydration Patient Disposition: Home, Self-Care Instructions: Gastritis (ED) Additional Instructions: Your blood work did reveal an elevated white blood cell count otherwise was unremarkable. Your COVID-19, influenza and RSV tests were negative. Your test was negative. Your symptoms are consistent with inflammation of your stomach (gastritis). Take Prilosec (omeprazole) 20 mg pills, 1 pill once a day for 1 month. ?This medication shuts off your acid production and lets the inflammation in your stomach and esophagus heal. Take Zofran ODT 4 mg pills, 1 pill dissolved in your mouth every 8 hours as needed for nausea and vomiting. Take extra-strength Gaviscon 10 mL (2 tsp) 4 times a day as needed for abdominal pain. Take Tylenol (acetaminophen) 500 mg pills, 2 pills every 6 hours as needed for pain or fever. Follow-up with your doctor in 2 days. Please return to the emergency department if your symptoms get worse or if you develop any symptoms that are concerning to you. Prescriptions: New acetaminophen [Tylenol Extra Strength] 500 mg tablet 1,000 mg PO Q6H PRN (Reason: fever or pain) Qty: 20 0RF omeprazole 20 mg capsule,delayed release(DR/EC) 20 mg PO DAILY 30 Days Qty: 30 0RF Gaviscon Extra Strength 254-237.5 mg/5 mL suspension 10 ml PO QID PRN (Reason: dyspepsia) Qty: 355 0RF ondansetron 4 mg tablet,disintegrating 4 mg PO Q6-8H PRN (Reason: nausea and vomiting) Qty: 14 0RF No Action ondansetron 4 mg tablet,disintegrating 4 mg PO Q6H PRN (Reason: nausea and vomiting) Qty: 10 0RF clindamycin HCl 300 mg capsule 300 mg PO TID Qty: 14 0RF ibuprofen 600 mg tablet 600 mg PO Q6H PRN (Reason: pain) Qty: 30 0RF ondansetron 4 mg tablet,disintegrating 4 mg PO Q8H PRN (Reason: nausea and vomiting) Qty: 20 0RF ondansetron HCl 4 mg tablet 4 mg PO Q6H PRN (Reason: nausea and vomiting) Qty: 10 0RF xxdwlkwysz-plqsiifcswzbs-ttms 50-325-40 mg tablet 1 tab PO Q6H PRN (Reason: haeadace) Qty: 20 0RF ibuprofen 400 mg tablet 400 mg PO Q6H PRN (Reason: pain) Qty: 20 0RF ondansetron 4 mg tablet,disintegrating 4 mg PO TID PRN (Reason: nausea and vomiting) 5 Days Qty: 10 0RF Print Language: Choose Not To Answer
[2025-02-02 07:48] LABS: Lipase 15 U/L (8-78)
[2025-02-02] MEDS: Lidocaine HCl 1 % MPF 5 ML VIAL INFILTRATI (08:10)
[2025-02-02 08:13] VITALS: BP 110/74; PULSE 76; RESP 16; TEMP 36.7; O2SAT 100
--- NOTE | 2025-02-02 08:13 | PC.NURSE ---
pt difficult stick, provider placed rt ej on patient, labs previously drawn, pt being medicated per order for 7/10 pain as well as nausea. call abreu within reach, plan of care ongoig
--- NOTE | 2025-02-02 11:37 | PC.NURSE ---
pt medicated for 6/10 pain, second bag of IVF hung per orders
[2025-02-02 12:30] VITALS: BP 102/63; PULSE 57; RESP 16; TEMP 36.6; O2SAT 100
[2025-02-02 15:05] VITALS: BP 106/73; PULSE 72; RESP 16; TEMP 36.7; O2SAT 100
== END 2025-02-02 15:06 | disposition home or self-care (01) ==
PROVIDERS: Emergency Provider Emergency Medicine Emergency Medical Services
DX: K29.70 Gastritis, unspecified, without bleeding (principal); R51.9 Headache, unspecified; R11.2 Nausea with vomiting, unspecified; R42 Dizziness and giddiness; E86.0 Dehydration
CPT/HCPCS: 36415; 80053; 83690; 84702; 85025; 87637; 96361; 96374; 96375; 96376; 99284; J1200; J2003; J2270; J2765

== ENCOUNTER 2025-02-26 10:48 | Emergency (ER) | payer MEDICAID, SELFPAY ==
--- NOTE | 2025-02-26 10:57 | ED_ITS ---
HPI - General Adult General Chief complaint: Nausea/Vomiting/Diarrhea Stated complaint: vomiting, cant hold down food Time Seen by Provider: 02/26/25 11:10 Source: patient Mode of arrival: ambulatory Limitations: no limitations History of Present Illness ED Provider: HPI narrative: 34-year-old female presenting with reports of nausea and vomiting for the past 3 days and able to keep anything down, uses tobacco, has history of gastritis, states has been using omeprazole and Zofran, reports seeing her PCP 2 months ago and has not had a referral to GI and she is awaiting that. Reports and epigastric abdominal pain. Related Data Previous Rx's ?Medication ?Instructions ?Recorded ondansetron 4 mg disintegrating 4 mg PO Q6H PRN nausea and 07/04/21 tablet vomiting #10 tabs shzydwtvxb-cvlbqyqqorvxp-saunqkol 1 tab PO Q6H PRN hae adace #20 tabs 03/27/24 50 mg-325 mg-40 mg tablet ondansetron HCl 4 mg tablet 4 mg PO Q6H PRN nausea and 03/27/24 vomiting #10 tabs clindamycin HCl 300 mg capsule 300 mg PO TID #14 caps 05/04/24 ibuprofen 400 mg tablet 400 mg PO Q6H PRN pain #20 t abs 07/09/24 ondansetron 4 mg disintegrating 4 mg PO TID PRN nausea and 07/10/24 tablet vomiting 5 days #10 tabs ibuprofen 600 mg tablet 600 mg PO Q6H PRN pain #30 t abs 08/05/24 ondansetron 4 mg disintegrating 4 mg PO Q8H PRN nausea and 08/05/24 tablet vomiting #20 tabs acetaminophen 500 mg tablet 1,000 mg (2 x 500 mg) PO Q 6H PRN 02/02/25 (Tylenol Extra Strength) fever or pain #20 tabs aluminum hydrox-magnesium carb 254 10 ml PO QID PRN dy spepsia #355 mL 02/02/25 mg-237.5 mg/5 mL oral suspension (Gaviscon Extra Strength) omeprazole 20 mg capsule,delayed 20 mg PO DAILY 30 day s #30 caps 02/02/25 release ondansetron 4 mg disintegrating 4 mg PO Q6-8H PRN naus ea and 02/02/25 tablet vomiting #14 tabs dicyclomine 10 mg capsule 10 mg PO TID PRN abdominal 0 02/26/25 cramping 5 days #10 caps ondansetron 4 mg disintegrating 4 mg PO Q8H PRN nausea and 02/26/25 tablet vomiting #4 tabs sucralfate 1 gram tablet (Carafate) 1 g PO Q6H 7 days #28 tabs 02/26/25 Allergies Allergy/AdvReac Type Severity Reaction Status Date / Time penicillin V Allergy Severe anaphylaxis Verified 02/26/25 10:58 Penicillins (PENICILLINS) Allergy Unknown DIFFICULTY Verified 02/26/25 10:58 BREATHING Review of Systems 2 Constitutional: Constitutional: Reports as per [place] Past Medical History Medical History Asthma Social History Social History Unable to assess alcohol history related to: Unknown Alcohol intake: current Alcohol intake frequency: holidays/special occasions only Smoked in Last 30 Days: Yes Use of substances other than those prescribed or required for medical reasons: Yes Substance Use Type: Marijuana Substance Use Frequency: Chronic Longstanding Last Used Substance: Just Prior to Admission Advance Directives: Yes Advance Directives Information Provided: Yes Advance Directives on File: No Do you have a plan to hurt others: No Plan Patient : No Physical Exam ED Vital Signs: Vital Signs - 24 hr 02/26/25 10:58 Temperature 98.2 F Pulse Rate 98 Respiratory Rate 17 Blood Pressure 136/93 H Pulse Oximetry 98 Oxygen Delivery Method Room Air BMI result Body Mass Index 21.6 Const Other: * Gen: ?Tearful, anxious affect * CV: RRR, no obvious murmurs appreciated * Resp: ?No wheezing rales rhonchi no stridor moving air well * Abd: ?Bowel sounds are present, mild epigastric tenderness, negative Herndon's, no tenderness in the lower quadrants * MSK: FROM, strength 5/5 all extremities * Skin: Warm, dry, intact, no jaundice * Neuro: ?Alert and oriented x3, moving upper and lower extremities symmetrically, no obvious facial asymmetry noted Course Course Course Narrative: Rapid medical examination performed in triage by Mansi Pena PA-C. Patient is a 34 year old assigned female at presenting to the emergency department with nausea, vomiting, and abdominal pain. Patient states she has a history of gastritis and her abdomen is burning when she vomits. Patient states she last took Zofran yesterday (02/25/2025). Detailed physical exam and review of systems are deferred to the psychotherapist counselor. Labs ordered. Patient placed back in the waiting room pending room availability and results. Medications Administered Discontinued Medications Generic Name Dose Route Start Last Admin Trade Name Freq PRN Reason Stop Dose Admin Al Hydroxide/Mg Hydroxide 30 ml 02/26/25 11:27 02/26/25 12:24 Magnesium Hydrox/Alum Hydrox 30 Ml Oral.Susp PO 02/26/25 11:28 30 ml ONCE ONE Administration Belladonna Alkaloids/Phenobarbital 10 ml 02/26/25 11:27 02/26/25 12:24 Phenobarb/Hyoscy/Atropine/Scop 10 Ml Elixir PO 02/26/25 11:28 10 ml ONCE ONE Administration Lidocaine HCl 15 ml 02/26/25 11:27 02/26/25 12:24 Lidocaine Hcl Viscous 2 % 15 Ml Solution PO 02/26/25 11:28 15 ml ONCE ONE Administration Ondansetron HCl 4 mg 02/26/25 11:27 02/26/25 11:51 Ondansetron Odt 4 Mg Tab.Rapdis TRANSLINGU 02/26/25 11:28 Not Given ONCE ONE Ondansetron HCl 4 mg 02/26/25 11:51 02/26/25 11:54 Ondansetron Hcl 4 Mg/2 Ml Vial IVPUSH 02/26/25 11:52 4 mg ONCE ONE Administration Medical Decision Making Medical Decision Making [facility] Narrative: Patient was seen in the beginning of this month for same symptoms, at that point she had significant workup including blood work, test, she was a difficult stick and had EJ placed, given morphine Reglan, I reviewed her prior labs, except for leukocytosis there was no indication for significant dehydration or LA, she is presenting with what appears to be epigastric pain likely gastritis though may considerations for workup as below, unless she has dehydrated but blood work, clinically she does not appear to be dehydrated, she has no tachycardia, no fevers, no tenderness in the lower quadrants to suspect ovarian pathology or appendicitis or diverticulitis, negative Herndon's sign, LFTs we will be obtained. Did not feel further imaging such as CT is indicated Differential Diagnosis Differential Diagnoses: The differential diagnosis associated with the presentation includes (Cholecystitis, pancreatitis, hepatitis, gastritis, cholangitis, choledocholithiasis, SBO, ) Admission/Observation Consideration of admission/observation: Escalation of care including admission/observation considered 2022 Emergency Medicine Coding Guide from [employer] on 02/26/2025 All calculations should be rechecked by clinician prior to use RESULT SUMMARY: 4 Estimated Level of Service Problems: Moderate (4) Risk: High (5) Data: Minimal (2) NARRATIVE MDM: This patient's problem complexity is Moderate as patient: with chronic illness(es) with exacerbation/progression/side effects of treatment. This patient's risk is High due to: overall presentation requiring evaluation for a potentially High-risk process. This patient's data complexity is Minimal. INPUTS: Number and Complexity ?> 3 = 4: chronic illness with exacerbation (c) Risk level ?> 4 = High Tests ordered ?> 1 = 1 Tests results reviewed (excluding labs) ?> 0 = 0 Prior external notes reviewed ?> 0 = 0 Assessment requiring and independent historian ?> 0 = No Independent interpretation of tests ?> 0 = No Discussed management/test interpretation w/external professional ?> 0 = No Lab Data MDM Lab Attestation statement: I reviewed the patient's lab results. (The patient was not on 02/02/2025) 02/26/25 11:07 02/26/25 11:07 Labs: Lab Results 02/26/25 Range/Units 11:07 WBC 8.6 (4.8-10.8) X10*3/uL RBC 4.66 (4.20-5.50) X10*6/uL Hgb 13.6 (12.0-16.0) g/dl Hct 40.4 (37.0-47.0) % MCV 86.7 (80.0-98.0) fL MCH 29.2 (27.0-33.0) pg MCHC 33.7 (31.0-35.0) g/dl RDW 13.3 (11.0-16.0) % Plt Count 300 (160-400) X10*3/uL MPV 9.3 L (9.4-12.3) fL Immature Gran % (Auto) 0.2 (0.0-0.4) % Neut % (Auto) 75.8 H (45-73) % Lymph % (Auto) 18.0 L (20-40) % [place] % (Auto) 3.9 (2-11) % Eos % (Auto) 1.2 (0-4) % Baso % (Auto) 0.9 (0-2) % Lymph # (Auto) 1.5 (1.2-4.9) X10*3/uL [place] # (Auto) 0.3 (0.1-1.2) X10*3/uL Eos # (Auto) 0.1 (0.0-0.4) X10*3/uL Baso # (Auto) 0.1 (0.0-0.2) X10*3/uL Abs Immat Gran (auto) 0.02 (0.00-0.03) X10*3/uL Absolute Neuts (auto) 6.5 (2.0-8.3) x10*3/uL Absolute Nucleated RBC 0.000 (0.0-0.012) X10*3/uL Nucleated RBC % (auto) 0.0 (0.0-0.2) /100WBC Sodium 140 (135-145) mmol/L Potassium 4.9 D (3.3-5.1) mmol/L Chloride 106 (96-108) mmol/L Carbon Dioxide 29 (22-29) mmol/L Anion Gap 10 L (12-20) BUN 10 (9-16) mg/dL Creatinine 0.79 (0.5-1.4) mg/dL Estim Creat Clear Calc 91.1 Estimated GFR > 60 Random Glucose 105 (60-115) mg/dL Calcium 9.6 (8.4-10.2) mg/dL Magnesium 1.6 (1.6-2.6) mg/dL Total Bilirubin 0.4 (0.0-1.0) mg/dL AST 21 (5-31) U/L ALT 18 (0-31) U/L Alkaline Phosphatase 43 (39-117) U/L Total Protein 6.7 (6.5-8.0) g/dL Albumin 4.4 (3.5-5.0) g/dL Lipase 11 (8-78) U/L Beta HCG, Quant < 2 mIU/mL Tests considered The following testing was considered but not selected: CAT scan abdomen and pelvis with IV contrast Discharge Plan Discharge Clinical Impression: Epigastric abdominal pain, Nausea & vomiting Patient Disposition: Home, Self-Care Instructions: Abdominal Pain (ED) Additional Instructions: your blood work has been reassuring, there was no evidence for dehydration, blood loss, or any issues with your electrolytes which sometimes can be seen with nausea and vomiting, I recommend waking up having a cup of water with small amount of lemon juice, then eating either rice porridge or oatmeal, with a little bit of salt, stay hydrated, you were doing good job thus far, and you have to eat on regular basis, I recommend against smoking marijuana as this may be contributing to your abdominal discomfort, dicyclomine you can take 1 pill every 6-8 hours for the next few days for abdominal cramping, ondansetron for nausea and vomiting you have had of the before, and Carafate please take it 20 minutes before any meal for the next 1 week it will help you with your symptoms and ability to keep food down, continue omeprazole, and make sure that your PCP is aware of the ER visits and that you were set up for GI follow up and likely endoscopy. Any other issues or concerns come back to the ER Prescriptions: New dicyclomine 10 mg capsule 10 mg PO TID PRN (Reason: abdominal cramping) 5 Days Qty: 10 0RF sucralfate [Carafate] 1 gram tablet 1 g PO Q6H 7 Days Qty: 28 0RF ondansetron 4 mg tablet,disintegrating 4 mg PO Q8H PRN (Reason: nausea and vomiting) Qty: 4 0RF No Action ondansetron 4 mg tablet,disintegrating 4 mg PO Q6H PRN (Reason: nausea and vomiting) Qty: 10 0RF clindamycin HCl 300 mg capsule 300 mg PO TID Qty: 14 0RF ibuprofen 600 mg tablet 600 mg PO Q6H PRN (Reason: pain) Qty: 30 0RF ondansetron 4 mg tablet,disintegrating 4 mg PO Q8H PRN (Reason: nausea and vomiting) Qty: 20 0RF acetaminophen [Tylenol Extra Strength] 500 mg tablet 1,000 mg PO Q6H PRN (Reason: fever or pain) Qty: 20 0RF omeprazole 20 mg capsule,delayed release(DR/EC) 20 mg PO DAILY 30 Days Qty: 30 0RF Gaviscon Extra Strength 254-237.5 mg/5 mL suspension 10 ml PO QID PRN (Reason: dyspepsia) Qty: 355 0RF ondansetron 4 mg tablet,disintegrating 4 mg PO Q6-8H PRN (Reason: nausea and vomiting) Qty: 14 0RF ondansetron HCl 4 mg tablet 4 mg PO Q6H PRN (Reason: nausea and vomiting) Qty: 10 0RF rnatzvtepm-ervwuaylrbznr-lzuu 50-325-40 mg tablet 1 tab PO Q6H PRN (Reason: haeadace) Qty: 20 0RF ibuprofen 400 mg tablet 400 mg PO Q6H PRN (Reason: pain) Qty: 20 0RF ondansetron 4 mg tablet,disintegrating 4 mg PO TID PRN (Reason: nausea and vomiting) 5 Days Qty: 10 0RF Referrals: Physician,Unknown J [Primary Care Provider, Medical] Print Language: Choose Not To Answer
[2025-02-26 10:58] VITALS: BP 136/93; PULSE 98; RESP 17; TEMP 36.8; O2SAT 98; BMI 21.6
[2025-02-26 11:15] LABS: MANUAL DIFF FLAG NO
[2025-02-26 11:17] LABS: Hematocrit 40.4 % (37.0-47.0); Hemoglobin 13.6 g/dl (12.0-16.0); Imm Gran Abs Auto 0.02 X10*3/uL (0.00-0.03); Imm Gran Pct Auto 0.2 % (0.0-0.4); Lymphocytes Absolute Auto 1.5 X10*3/uL (1.2-4.9); Mean Corpuscular HGB Conc 33.7 g/dl (31.0-35.0); Mean Corpuscular Hemoglobin 29.2 pg (27.0-33.0); Mean Corpuscular Volume 86.7 fL (80.0-98.0); NRBC Abs Auto 0.000 X10*3/uL (0.0-0.012); NRBC Pct Auto 0.0 /100WBC (0.0-0.2); Platelet Count 300 X10*3/uL (160-400); Red Blood Count 4.66 X10*6/uL (4.20-5.50); White Blood Count 8.6 X10*3/uL (4.8-10.8)
[2025-02-26 11:31] LABS: Alanine Aminotransferase 18 U/L (0-31); Albumin Level 4.4 g/dL (3.5-5.0); Alkaline Phosphatase 43 U/L (39-117); Anion Gap 10 (12-20); Aspartate Amino Transferase 21 U/L (5-31); Blood Urea Nitrogen 10 mg/dL (9-16); Calcium 9.6 mg/dL (8.4-10.2); Carbon Dioxide 29 mmol/L (22-29); Chloride 106 mmol/L (96-108); Creatinine Clr Calc Pharmacy 91.1; Estimated Glomerular Filt Rate > 60; Lipase 11 U/L (8-78); Magnesium 1.6 mg/dL (1.6-2.6); Potassium 4.9 mmol/L (3.3-5.1); Sodium 140 mmol/L (135-145); Total Protein 6.7 g/dL (6.5-8.0)
--- NOTE | 2025-02-26 11:55 | PC.NURSE ---
Pt requesting IVP Zofran instead of SL; made aware
[2025-02-26] MEDS: Magnesium Hydrox/Alum Hydrox 30 ML ORAL.SUSP PO (12:24)
[2025-02-26] MEDS: PHENobarb/Hyoscy/Atropine/Scop 10 ML ELIXIR PO (12:24)
[2025-02-26] MEDS: Lidocaine HCl Viscous 2 % 15 ML SOLUTION PO (12:24)
[2025-02-26 13:12] VITALS: BP 106/62; PULSE 76; RESP 16; TEMP 36.8; O2SAT 98
== END 2025-02-26 13:14 | disposition home or self-care (01) ==
PROVIDERS: Physician Assistant Medical; Emergency Provider Emergency Medicine
DX: R11.2 Nausea with vomiting, unspecified (principal); R10.13 Epigastric pain; Z79.899 Other long term (current) drug therapy
CPT/HCPCS: 36415; 80053; 83690; 83735; 84702; 85025; 96374; 99283; 99284; J2405

== ENCOUNTER 2025-03-16 12:30 | Emergency (ER) | payer MEDICAID, SELFPAY ==
--- NOTE | ~2025-03-16 | CT_ITS ---
CLINICAL HISTORY: abd pain n v d CT ABDOMEN AND PELVIS WITH CONTRAST Comparison: None provided Findings: No consolidation or effusion. Unremarkable gallbladder and solid organs. No urolithiasis. No bowel obstruction, pneumoperitoneum, or pneumatosis. Mild fluid distention of multiple small bowel loops in the lower abdomen and pelvis. Uscshdai-[id number] colonic stool burden. The appendix is identified. No acute appendicitis. CT appearance of the uterus unremarkable. Multiple subcentimeter ovarian follicles bilaterally appear present. Minimal likely physiologic free fluid in the pelvis. No urinary bladder wall thickening. Multiple pelvic phleboliths. The bones are intact. IMPRESSION: 1. Mild small bowel ileus pattern. No obstruction. 2. No acute obstructive uropathy, Pyelonephritis or or urolithiasis. 3. No acute appendicitis. This document has been electronically signed by: Saida Monge DO on 03/16/2025 19:42:42
--- NOTE | ~2025-03-16 | CT_ITS ---
CLINICAL HISTORY: headache CT HEAD WITHOUT CONTRAST Comparison: CT/REG/IN/SR - CT HEAD WITHOUT IV CONTRAST - 07/28/24 12:14 EST Findings: No acute intracranial hemorrhage, extra-axial fluid collection, hydrocephalus or midline shift. No significant atrophy-like change. No significant white matter disease. There is no sinus or mastoid fluid. Visualized orbits: No acute abnormalities. There is no acute fracture. IMPRESSION: 1. No acute intracranial process. This document has been electronically signed by: Saida Monge DO on 03/16/2025 19:35:50
[2025-03-16 12:43] VITALS: BP 133/68; PULSE 66; RESP 18; TEMP 36.7; O2SAT 98
--- NOTE | 2025-03-16 12:44 | ED_ITS ---
HPI - General Adult General Chief complaint: Nausea/Vomiting/Diarrhea Stated complaint: GI problems Time Seen by Provider: 03/16/25 14:10 Source: patient and family Mode of arrival: ambulatory Limitations: no limitations History of Present Illness ED Provider: JEREMIAH Smith HPI narrative: This is a 34-year-old female history of gastritis who presents to the emergency department with complaints of epigastric pain in the stomach with associated nausea and vomiting she tells me she has been vomiting since last night, she is having a hard time keeping down food. Tells me she is feeling overall unwell. Also reporting severe headache unlike her typical it is diffuse in nature however does not seem to be going away however has not taken anything for it. Denies any sick contacts. Denies blood in vomit, fevers, chills, chest pain, shortness breath, hematemesis, hematochezia, urinary symptoms, cough, runny nose. To note, patient does mention that she is currently being treated for H pylori however, she refuses to take these medications she does not like the way they make her feel. Related Data Previous Rx's ?Medication ?Instructions ?Recorded ondansetron 4 mg disintegrating 4 mg PO Q6H PRN nausea and 07/04/21 tablet vomiting #10 tabs wpeficjven-hqhryighwvwpl-nzjjhhjc 1 tab PO Q6H PRN hae adace #20 tabs 03/27/24 50 mg-325 mg-40 mg tablet ondansetron HCl 4 mg tablet 4 mg PO Q6H PRN nausea and 03/27/24 vomiting #10 tabs clindamycin HCl 300 mg capsule 300 mg PO TID #14 caps 05/04/24 ibuprofen 400 mg tablet 400 mg PO Q6H PRN pain #20 t abs 07/09/24 ondansetron 4 mg disintegrating 4 mg PO TID PRN nausea and 07/10/24 tablet vomiting 5 days #10 tabs ibuprofen 600 mg tablet 600 mg PO Q6H PRN pain #30 t abs 08/05/24 ondansetron 4 mg disintegrating 4 mg PO Q8H PRN nausea and 08/05/24 tablet vomiting #20 tabs acetaminophen 500 mg tablet 1,000 mg (2 x 500 mg) PO Q 6H PRN 02/02/25 (Tylenol Extra Strength) fever or pain #20 tabs aluminum hydrox-magnesium carb 254 10 ml PO QID PRN dy spepsia #355 mL 02/02/25 mg-237.5 mg/5 mL oral suspension (Gaviscon Extra Strength) omeprazole 20 mg capsule,delayed 20 mg PO DAILY 30 day s #30 caps 02/02/25 release ondansetron 4 mg disintegrating 4 mg PO Q6-8H PRN naus ea and 02/02/25 tablet vomiting #14 tabs dicyclomine 10 mg capsule 10 mg PO TID PRN abdominal 0 02/26/25 cramping 5 days #10 caps ondansetron 4 mg disintegrating 4 mg PO Q8H PRN nausea and 02/26/25 tablet vomiting #4 tabs sucralfate 1 gram tablet (Carafate) 1 g PO Q6H 7 days #28 tabs 02/26/25 ondansetron 4 mg disintegrating 4 mg PO Q8H PRN nausea and 03/16/25 tablet vomiting #12 tabs Allergies Allergy/AdvReac Type Severity Reaction Status Date / Time penicillin V Allergy Severe anaphylaxis Verified 03/16/25 12:46 Penicillins (PENICILLINS) Allergy Unknown DIFFICULTY Verified 03/16/25 12:46 BREATHING Review of Systems 2 Review of Systems: Yes all other systems are reviewed and are negative [facility] Past Medical History Attestation statement: The following information was validated with the patient. Source: old records reviewed and nursing notes reviewed Medical History Asthma Social History Social History Unable to assess alcohol history related to: Unknown Alcohol intake: current Alcohol intake frequency: holidays/special occasions only Substance Use Type: Marijuana Advance Directives: No Advance Directives Information Provided: Yes Do you have a plan to hurt others: No Plan Physical Exam ED Exam Exam: Appearance: Alert.? Oriented X3.? No acute distress.? Head: Normocephalic, atraumatic, no step-offs or deformities Eyes: Pupils equal, round and reactive to light.? ENT: Pharynx normal.? Neck: Normal inspection.? Neck supple.? CVS: Normal heart rate and rhythm.? Pulses normal.? Respiratory: No respiratory distress.? Breath sounds normal.? Abdomen: Soft and nontender.? Skin: Skin warm and dry.? Normal skin color.? Normal skin turgor.? Extremities: No lower extremity edema.? No calf ttp. 5/5 strength to bilateral upper and lower extremities Back: No midline tenderness, no C-spine tenderness, full range of motion, no CVA tenderness bilaterally Neuro: Oriented X 3.? No motor deficit.? No sensory deficit. CN 2-12 intact Vital Signs: Vital Signs - 24 hr 03/16/25 12:43 03/16/25 15:42 03/16/25 18:30 Temperature 98.0 F 97.9 F 98.1 F Pulse Rate 66 56 67 Respiratory Rate 18 20 70 H Blood Pressure 133/68 135/78 123/75 Pulse Oximetry 98 100 100 Oxygen Delivery Method Room Air Room Air Room Air BMI result Body Mass Index 20.0 Vital signs stable Course Course Course Narrative: Rapid medical examination performed in triage by Mansi Pena PA-C. Patient is a 34 year old assigned female at presenting to the emergency department with nausea and vomiting. Patient states that she has a history of gastritis and is having a flare at this time with nausea and vomiting over the last 2 days. Detailed physical exam and review of systems are deferred to the marzipan maker. Labs ordered. Patient placed back in the waiting room pending room availability and results. Reevaluation(s) Reevaluation #1: Patient's CBC unremarkable. Chemistry no acute findings needing intervention. Urine and imaging still pending Reevaluation #2: March 16, 2025, 6:00 p.m. Received sign-out with patient resting comfortably at this time. Imaging and med medications and reassessment pending. JS March 16, 2025, 8:50 p.m. patient tolerated IV fluids. Reassessment of the patient's abdomen is soft and nontender. She is not having any further nausea. She feels comfortable with discharge plan home. Reviewed all discharge instructions including cessation of cannabis use. She expresses understanding of all discharge instructions and has no further questions at this time. Medications Administered Generic Name Dose Route Start Last Admin Trade Name Freq PRN Reason Stop Dose Admin Sodium Chloride 1,000 mls @ 999 mls/hr 03/16/25 20:00 03/16/25 19:54 Ns IV 03/16/25 21:00 999 mls/hr .Q1H1M LAYLA Administration Discontinued Medications Generic Name Dose Route Start Last Admin Trade Name Evan PRN Reason Stop Dose Admin Al Hydroxide/Mg Hydroxide 15 ml 03/16/25 16:31 03/16/25 17:00 Magnesium Hydrox/Alum Hydrox 30 Ml Oral.Susp PO 03/16/25 16:32 15 ml ONCE ONE Administration Belladonna Alkaloids/Phenobarbital 5 ml 03/16/25 16:31 03/16/25 16:56 Phenobarb/Hyoscy/Atropine/Scop 10 Ml Elixir PO 03/16/25 16:32 5 ml ONCE ONE Administration Iohexol 100 ml 03/16/25 18:24 03/16/25 18:25 Iohexol 350 Mg/Ml 100 Ml Infus..Btl IV 03/16/25 18:25 85 ml ONCE ONE Administration Ketorolac Tromethamine 15 mg 03/16/25 16:41 03/16/25 16:53 Ketorolac Tromethamine 15 Mg/Ml Vial IVPUSH 03/16/25 16:42 15 mg ONCE ONE Administration Medical Decision Making Medical Decision Making MDM Narrative: 34-year-old female presents with nausea, vomiting, abdominal pain since last night. Also reporting severe headache that does not feel like her typical Physical exam mild epigastric discomfort on palpation. Neurological function nonfocal. NIH stroke scale 0. History and physical exam concerning for possible viral illness versus cyclic vomiting versus gastritis. Headache likely typical headache unlikely intracranial hemorrhage, stroke, posterior stroke, meningitis or encephalitis. Plan labs, imaging, will give , Maalox as well as Toradol. Differential Diagnosis Differential Diagnoses: The differential diagnosis associated with the presentation includes ( History and physical exam concerning for possible viral illness versus cyclic vomiting versus gastritis. Headache likely typical headache unlikely intracranial hemorrhage, stroke, posterior stroke, meningitis or encephalitis.) Admission/Observation Consideration of admission/observation: Escalation of care including admission/observation considered Lab Data [facility] Lab Attestation statement: I reviewed the patient's lab results. 03/16/25 13:01 03/16/25 13:01 Labs: Lab Results 03/16/25 03/16/25 Range/Units 13:01 16:01 WBC 10.1 (4.8-10.8) X10*3/uL RBC 4.94 (4.20-5.50) X10*6/uL Hgb 14.2 (12.0-16.0) g/dl Hct 41.8 (37.0-47.0) % MCV 84.6 (80.0-98.0) fL MCH 28.7 (27.0-33.0) pg MCHC 34.0 (31.0-35.0) g/dl RDW 13.2 (11.0-16.0) % Plt Count 279 (160-400) X10*3/uL MPV 9.0 L (9.4-12.3) fL Immature Gran % (Auto) 0.4 (0.0-0.4) % Neut % (Auto) 85.9 H (45-73) % Lymph % (Auto) 10.3 L (20-40) % [place] % (Auto) 2.6 (2-11) % Eos % (Auto) 0.2 (0-4) % Baso % (Auto) 0.6 (0-2) % Lymph # (Auto) 1.0 L (1.2-4.9) X10*3/uL [place] # (Auto) 0.3 (0.1-1.2) X10*3/uL Eos # (Auto) 0.0 (0.0-0.4) X10*3/uL Baso # (Auto) 0.1 (0.0-0.2) X10*3/uL Abs Immat Gran (auto) 0.04 H (0.00-0.03) X10*3/uL Absolute Neuts (auto) 8.7 H (2.0-8.3) x10*3/uL Absolute Nucleated RBC 0.000 (0.0-0.012) X10*3/uL Nucleated RBC % (auto) 0.0 (0.0-0.2) /100WBC Sodium 142 (135-145) mmol/L Potassium 4.6 (3.3-5.1) mmol/L Chloride 106 (96-108) mmol/L Carbon Dioxide 29 (22-29) mmol/L Anion Gap 12 (12-20) BUN 14 (9-16) mg/dL Creatinine 0.78 (0.5-1.4) mg/dL Estim Creat Clear Calc 88.1 Estimated GFR > 60 Random Glucose 100 (60-115) mg/dL Calcium 9.7 (8.4-10.2) mg/dL Magnesium 1.8 (1.6-2.6) mg/dL Total Bilirubin 0.6 (0.0-1.0) mg/dL AST 24 (5-31) U/L ALT 17 (0-31) U/L Alkaline Phosphatase 45 (39-117) U/L Total Protein 6.8 (6.5-8.0) g/dL Albumin 4.5 (3.5-5.0) g/dL Beta HCG, Quant < 2 mIU/mL COVID-19 (LEFTY) Negative (Negative) COVID-19 Clin Com See Note Influenza Type A (EFREN) Negative (Negative) Influenza Type B (EFREN) Negative (Negative) Influenza A & B Note See Note Independent Interpretation I performed an independent interpretation of an: CT Scan Radiology Impression Discussion of test interpretation with radiology: I have reviewed the radiologist's reading. External Record Review External record reviewed: Inpatient record, Office record, Outpatient record, Prior outpatient labs, Prior outpatient radiology, Primary care record and Outside ED record Discharge Plan Discharge Clinical Impression: Nausea & vomiting Qualifiers: Vomiting type: unspecified Qualified Code(s): R11.2 - Nausea with vomiting, unspecified Abdominal pain Qualifiers: Abdominal location: generalized Qualified Code(s): R10.84 - Generalized abdominal pain Patient Disposition: Home, Self-Care Instructions: Acute Nausea and Vomiting (ED) Additional Instructions: Clear liquids. Pershing diet. Gradually advance. Zofran as directed at the 1st sign of nausea. Avoid vaping and marijuana use as this may be contributing to some of your symptoms. Follow-up with your primary care provider. Call this week to schedule a follow- up appointment. Return to the emergency department if you have any worsening of symptoms, or any concerns. Get well soon! Prescriptions: New ondansetron 4 mg tablet,disintegrating 4 mg PO Q8H PRN (Reason: nausea and vomiting) Qty: 12 0RF No Action ondansetron 4 mg tablet,disintegrating 4 mg PO Q6H PRN (Reason: nausea and vomiting) Qty: 10 0RF clindamycin HCl 300 mg capsule 300 mg PO TID Qty: 14 0RF ibuprofen 600 mg tablet 600 mg PO Q6H PRN (Reason: pain) Qty: 30 0RF ondansetron 4 mg tablet,disintegrating 4 mg PO Q8H PRN (Reason: nausea and vomiting) Qty: 20 0RF acetaminophen [Tylenol Extra Strength] 500 mg tablet 1,000 mg PO Q6H PRN (Reason: fever or pain) Qty: 20 0RF omeprazole 20 mg capsule,delayed release(DR/EC) 20 mg PO DAILY 30 Days Qty: 30 0RF Gaviscon Extra Strength 254-237.5 mg/5 mL suspension 10 ml PO QID PRN (Reason: dyspepsia) Qty: 355 0RF ondansetron 4 mg tablet,disintegrating 4 mg PO Q6-8H PRN (Reason: nausea and vomiting) Qty: 14 0RF dicyclomine 10 mg capsule 10 mg PO TID PRN (Reason: abdominal cramping) 5 Days Qty: 10 0RF sucralfate [Carafate] 1 gram tablet 1 g PO Q6H 7 Days Qty: 28 0RF ondansetron 4 mg tablet,disintegrating 4 mg PO Q8H PRN (Reason: nausea and vomiting) Qty: 4 0RF ondansetron HCl 4 mg tablet 4 mg PO Q6H PRN (Reason: nausea and vomiting) Qty: 10 0RF bkaupfaoeg-mmtbhvqwtmogr-lzeg 50-325-40 mg tablet 1 tab PO Q6H PRN (Reason: haeadace) Qty: 20 0RF ibuprofen 400 mg tablet 400 mg PO Q6H PRN (Reason: pain) Qty: 20 0RF ondansetron 4 mg tablet,disintegrating 4 mg PO TID PRN (Reason: nausea and vomiting) 5 Days Qty: 10 0RF Stand Alone Forms: Work/School Release Print Language: Choose Not To Answer
[2025-03-16 13:06] LABS: MANUAL DIFF FLAG NO
[2025-03-16 13:10] LABS: Hematocrit 41.8 % (37.0-47.0); Hemoglobin 14.2 g/dl (12.0-16.0); Imm Gran Abs Auto 0.04 X10*3/uL (0.00-0.03); Imm Gran Pct Auto 0.4 % (0.0-0.4); Lymphocytes Absolute Auto 1.0 X10*3/uL (1.2-4.9); Mean Corpuscular HGB Conc 34.0 g/dl (31.0-35.0); Mean Corpuscular Hemoglobin 28.7 pg (27.0-33.0); Mean Corpuscular Volume 84.6 fL (80.0-98.0); NRBC Abs Auto 0.000 X10*3/uL (0.0-0.012); NRBC Pct Auto 0.0 /100WBC (0.0-0.2); Platelet Count 279 X10*3/uL (160-400); Red Blood Count 4.94 X10*6/uL (4.20-5.50); White Blood Count 10.1 X10*3/uL (4.8-10.8)
[2025-03-16 13:25] LABS: Alanine Aminotransferase 17 U/L (0-31); Albumin Level 4.5 g/dL (3.5-5.0); Alkaline Phosphatase 45 U/L (39-117); Anion Gap 12 (12-20); Aspartate Amino Transferase 24 U/L (5-31); Blood Urea Nitrogen 14 mg/dL (9-16); Calcium 9.7 mg/dL (8.4-10.2); Carbon Dioxide 29 mmol/L (22-29); Chloride 106 mmol/L (96-108); Creatinine Clr Calc Pharmacy 88.1; Estimated Glomerular Filt Rate > 60; Magnesium 1.8 mg/dL (1.6-2.6); Potassium 4.6 mmol/L (3.3-5.1); Sodium 142 mmol/L (135-145); Total Protein 6.8 g/dL (6.5-8.0)
[2025-03-16 15:42] VITALS: BP 135/78; PULSE 56; RESP 20; TEMP 36.6; O2SAT 100
[2025-03-16 16:38] LABS: COVID-19 Test Negative (Negative); IDNOW Serial# 55D5AD1C; IDNOW Serial# 58CA691E; Influenza B2 Negative (Negative)
[2025-03-16] MEDS: PHENobarb/Hyoscy/Atropine/Scop 10 ML ELIXIR 5 ML PO (16:56)
[2025-03-16] MEDS: Magnesium Hydrox/Alum Hydrox 30 ML ORAL.SUSP 15 ML PO (17:00)
--- OUTSIDE RECORDS SUMMARY | 2025-03-16 17:00 | XMS_ITS | Encounter Summary ---
Author Organization [employer] Address [address] [place] [address] Care Team Providers Care Pack Worker Supervisor Name Role Phone Keesha Hines MD Primary Care Provider [phone] Encounter Details Date Type Department Care Team (Late st Contact Info) Description 01/22/2025 Orders Only [facility] [address] [place], [place] [phone] Keesha Hines MD [address] [place], [place] [phone] Social History Tobacco Use Types Packs/Day Years [...] as of this encounter Plan of Treatment Upcoming Encounters Date Type Department Care Team (Late st Contact Info) Description 03/28/2025 3:45 PM EDT Procedure Visit [facility] [address] [place] [address] Keesha Hines MD [address] [place] [address] documented as of this encounter Visit Diagnoses Not on filedocumented in this encounter Additional Health Concerns Assessment Noted Time PHQ-9 Depression Total Score: 9 02/18/20 24 2:40 PM EDT documented as of this encounter Care Teams Pack Worker Supervisor Relationship Specialty Start Date End Date Keesha Hines MD [address] [place], [place] [phone] PCP - General Family Medicine 03/25/23 documented as of this encounter
--- OUTSIDE RECORDS SUMMARY | 2025-03-16 17:00 | XMS_ITS | Encounter Summary ---
Author Organization [employer] Address [address] [facility] [address] [place] [address] Care Team Providers Care Senior It Engineer Name Role Phone Keesha Hines MD Primary Care Provider [phone] Reason for Visit * Reason Onset Date Comments Nurse Triage 08/03/2024 Encounter Details Date Type Department Care Team ([facility] st Contact Info) Description 08/03/2024 Telephone [facility] [address] [place], [place] [phone] Keesha Hines MD [address] [place] [address] Nurse Triage Social History Tobacco Use Types [...] Reason: Getting worse Please contact pt at [phone]. documented in this encounter Plan of Treatment Upcoming Encounters Date Type Department Care Team (Late st Contact Info) Description 03/28/2025 3:45 PM EDT Procedure Visit [facility] [address] [place] [address] Keesha Hines MD [address] [place] [address] documented as of this encounter Visit Diagnoses Not on filedocumented in this encounter Additional Health Concerns Assessment Noted Time PHQ-9 Depression Total Score: 9 02/18/20 24 2:40 PM EDT documented as of this encounter Care Teams Senior It Engineer Relationship Specialty Start Date End Date Keesha Hines MD [address] [place] [address] PCP - General Family Medicine 03/25/23 documented as of this encounter
--- OUTSIDE RECORDS SUMMARY | 2025-03-16 17:00 | XMS_ITS | Encounter Summary ---
Author Organization [employer] Address [address] [facility] [address] [place] [address] Care Team Providers Care Color Maker Name Role Phone Keesha Hines MD Primary Care Provider Reason for Visit * Reason Onset Date Comments Nurse Triage 02/17/2024 Encounter Details Date Type Department Care Team ([facility] st Contact Info) Description 02/17/[address] [facility] [address] [place], [place] [phone] Keesha Hines MD [address] [place] [address] Nurse Triage Social History Tobacco Use Types [...] AM EDT documented as of this encounter Functional Status * Over the past 2 weeks, how often have you been bothered by any of the following problems? Question Answer Date of Assessment Author Patient Health Questionnaire -2 Score 0 02/18/2024 2:40 PM EDT Eduardo Zuniga MA * If you checked off any problems on this questionnaire so far, Question Answer Date of Assessment Author How difficult have these problems made it for you to do your work, take care of things at home, or get along with other people? Not difficult at all 02/18/2024 2:40 PM JEFFYT Alli Zuniga MA * Over the past 2 weeks, how often have you been bothered by any of the following problems? Question Answer Date of Assessment Author Little interest or pleasure in doing things Not at all 02/18/2024 2:40 PM JEFFYT Holden Zuniga MA Feeling down, depressed, or hopeless Not at all 02/18/2024 2:40 PM JEFFYT Eduardo Zuniga MA Trouble falling or staying asleep, or sleeping too much Nearly every day 02/18/2024 2:40 PM JEFFYT Eduardo Zuniga MA Feeling tired or having little energy Nearly every day 02/18/2024 2:40 PM JEFFYT Eduardo Zuniga MA Poor appetite or overeating Nearly every day 02/18/2024 2:40 PM JEFFYT Eduardo Zuniga MA Feeling bad about yourself - or that you are a failure or have let yourself or your family down Not at all 02/18/2024 2:40 PM EDT Eduardo Zuniga MA Trouble concentrating on things, such as reading the newspaper or watching television Not at all 02/18/2024 2:40 PM EDT Eduardo Zuniga MA Moving or speaking so slowly that other people could have noticed? Or the opposite - being so fidgety or restless that you have been moving around a lot more than usual. Not at all 02/18/2024 2:40 PM EDT Eduardo Zuniga MA Thoughts that you would be better off or hurting yourself in some way Not at all 02/18/2024 2:40 PM EDT Alli Zuniga MA Patient Health Questionnaire-9 Score 9 02/18/2024 2:40 PM EDT Karla Zuniga MA documented as of this encounter Miscellaneous Notes [...] Description 03/28/2025 3:45 PM EDT Procedure Visit [facility] [address] [place] [address] Keesha Hines MD [address] [place] [address] documented as of this encounter Visit Diagnoses Not on filedocumented in this encounter Additional Health Concerns Assessment Noted Time PHQ-9 Depression Total Score: 5 01/07/20 23 11:49 AM EDT documented as of this encounter Care Teams Color Maker Relationship Specialty Start Date End Date Keesha Hines MD [address] [place] [address] PCP - General Family Medicine 03/25/23 documented as of this encounter
--- OUTSIDE RECORDS SUMMARY | 2025-03-16 17:00 | XMS_ITS | Encounter Summary ---
Author Organization [employer] Address [address] [facility] 7t [place] [address] Care Team Providers Care Assistant Foreman Name Role Phone Keesha Hines MD Primary Care Provider [phone] Encounter Details Date Type Department Care Team (Late st Contact Info) Description 02/21/2024 Orders Only [facility] [address] [place], [place] [phone] Keesha Hines MD [address] [place], [place] [phone] Nausea and vomiting, unspecified vomiting type (Primary [...] Description 03/28/2025 3:45 PM EDT Procedure Visit [facility] [address] [place] [address] Keesha Hines MD [address] [place] [address] Scheduled Orders Name Type Priority Associated Diagnoses [...] EDT) Lipase 10 8 - 78 U/L [facility] 03/27/2024 4:08 AM EDT 03/27/2024 4:11 AM EDT us Generic External Data Provider LAB BLOOD ORDERAB LES Final Result [facility] [address] [place] [phone] * (ABNORMAL) Comprehensive Metabolic Panel (03/27/2024 4:08 AM EDT) Sodium 144 135 - 145 mmol/L [facility] Potassium 3.9 3.3 - 5.1 mmol/L [facility] Chloride 107 96 - 108 mmol/L [facility] Carbon Dioxide 29 22 - 29 mmol/L [facility] Anion Gap 12 12 - 20 [facility] Urea Nitrogen (BUN) 14 9 - 16 mg/dL [facility] Creatinine, Serum 0.83 0.5 - 1.4 mg/dL [facility] Creatinine Clr Calc Pharmacy 87.6 [facility] Comment:Provided height and weight: 165.1 cm,61.235 kg.eGFR (calculated from the MDRD study equation) and eCrCl(calculated from the Cockcroft-Gault equation) are based ondifferent parameters and may not yield comparable results.If eCrCl result is absurd, please check patient'sheight/weight. Estimated Glomerular Filt Rate >60 [facility] Comment:NOTE: For -Am erican individuals, multiply the result by 1.210.Chronic Kidney Disease: Estimated GFR < 60 mL/min/1.89h5Rkyuli Kidney Disease: Estimated GFR < 15 mL/min/1.73m2 Glucose 122(H) 60 - 115 mg/dL [facility] Calcium 9.6 8.4 - 10.2 mg/dL [facility] Bilirubin, Total 0.5 0.0 - 1.0 mg/dL [facility] Aspartate Amino Transferase 26 5 - 31 U/L [facility] Alanine Aminotransferase 22 0 - 31 U/L [facility] Total Protein 6.4(L) 6.5 - 8.0 g/dL [facility] Albumin Level 4.0 3.5 - 5.0 g/dL [facility] Alkaline Phosphatase 40 39 - 117 U/L [facility] 03/27/2024 4:08 AM EDT 03/27/2024 4:11 AM EDT us Generic External Data Provider LAB BLOOD ORDERAB LES Final Result [facility] [address] [place] [phone] * (ABNORMAL) CBC auto differential (03/27/2024 4:08 AM EDT) White Blood Count 10.6 4.8 - 10.8 X10*3/uL [facility] Red Blood Count 4.47 4.20 - 5.50 X10*6/uL [facility] Hemoglobin 13.1 12.0 - 16.0 g/dl [facility] Hematocrit 38.1 37.0 - 47.0 % [facility] Mean Corpuscular Volume 85.2 80.0 - 98.0 fL [facility] Mean Corpuscular Hemoglobin 29.3 27.0 - 33.0 pg [facility] Mean Corpuscular HGB Conc 34.4 31.0 - 35.0 g/dl [facility] Red Cell Distribution Width 12.7 11.0 - 16.0 % [facility] Platelet Count 251 160 - 400 X10*3/uL [facility] Mean Platelet Volume 9.3(L) 9.4 - 12.3 fL [facility] Neutrophils Percent Auto 85.4(H) 45 - 73 % [facility] Imm Gran Pct Auto 0.3 0.0 - 0.4 % [facility] Lymphocytes Percent Auto 10.4(L) 20 - 40 % [facility] Monocytes Percent Auto 2.7 2 - 11 % [facility] Eosinophils Percent Auto 0.4 0 - 4 % [facility] Basophils Percent Auto 0.8 0 - 2 % [facility] NRBC Pct Auto 0.0 0.0 - 0.2 /100WBC [facility] Neutrophils Absolute Auto 9.1(H) 2.0 - 8.3 x10*3/uL [facility] Imm Gran Abs Auto 0.03 0.00 - 0.03 X10*3/uL [facility] Lymphocytes Absolute Auto 1.1(L) 1.2 - 4.9 X10*3/uL [facility] Monocytes Absolute Auto 0.3 0.1 - 1.2 X10*3/uL [facility] Eosinophils Absolute Auto 0.0 0.0 - 0.4 X10*3/uL [facility] Basophils Absolute Auto 0.1 0.0 - 0.2 X10*3/uL [facility] NRBC Abs Auto 0.000 0.0 - 0.012 X10*3/uL [facility] 03/27/2024 4:08 AM EDT 03/27/2024 4:11 AM EDT us Generic External Data Provider LAB BLOOD ORDERAB LES Final Result [facility] [address] [place] [phone] * SARS-CoV-2 RNA, Influenza A/B, and RSV RNA, Ql NAAT (03/27/2024 3:15 AM EDT) Influenza A PCR NEGATIVE Negative [facility] Influenza B PCR NEGATIVE Negative [facility] Resp Syncy Virus RNA Qual PCR NEGATIVE Negative [facility] SARS COV2 PCR NEGATIVE Negative [facility] Comment:All test results mus t [...] use by authorized laboratories.Testing performed on the [employer] GeneXpert utilizingreal-time RT-PCR.All SARS CoV2 and positive influenza A/B results arereported to [facility]. 03/27/2024 3:15 AM EDT 03/27/2024 3:17 AM EDT us Generic External Data Provider LAB MICROBIOLOGY - GENERAL ORDERABLES Final Result Performing Organization Address City/State/[facility] Co de Phone Number [facility] [address] [place] [phone] documented in this encounter Visit Diagnoses Diagnosis Nausea and vomiting, unspecified vomiting type- Primary documented in this encounter Additional Health Concerns Assessment Noted Time PHQ-9 Depression Total Score: 9 02/18/20 24 2:40 PM EDT documented as of this encounter Care Teams Assistant Foreman Relationship Specialty Start Date End Date Keesha Hines MD [address] [place] [phone] PCP - General Family Medicine 03/25/23 documented as of this encounter
--- OUTSIDE RECORDS SUMMARY | 2025-03-16 17:00 | XMS_ITS | Encounter Summary ---
Author Organization [employer] Address [address] [facility] 7 [place] [address] Care Team Providers Care Loan Collector Name Role Phone Keesha Hines MD Primary Care Provider [phone] Reason for Referral * Consultation (Routine) - Closed Specialty Diagnoses / Procedures Referred By Contac t Referred To Contact Optometry Diagnoses Blurry vision Keesha Hines MD [address] [place] [address] Phone: tel: fax: Referral ID Status Reason Start Date Expiration Date V isits Requested Visits Authorized [id number] Closed Specialty Services Required 10/27/2024 10/27/2025 1 1 Encounter Details Date Type Department Care Team (Late st Contact Info) Description 10/27/2024 Orders Only [facility] [address] [place], [place] [phone] Keesha Hines MD [address] [place], [place] [phone] Blurry vision (Primary Dx) Social History Tobacco Use Types [...] your housing situation today? I have dipti sing 02/18/[address] you li [...] Description 03/28/2025 3:45 PM EDT Procedure Visit [facility] [address] [place] [address] Keesha Hines MD [address] [place] [address] Scheduled Referrals Name Type Priority Associated Diagnoses Orde r Schedule Referral to Optometry, Internal Outpatient Referral Routine Blurry vision Expected: 10/27/2024 (Approximate), Expires: 10/27/2025 documented as of this encounter Visit Diagnoses Diagnosis Blurry vision- Primary Other specified visual disturbances documented in this encounter Additional Health Concerns Assessment Noted Time PHQ-9 Depression Total Score: 9 02/18/20 24 2:40 PM EDT documented as of this encounter Care Teams Loan Collector Relationship Specialty Start Date End Date Keesha Hines MD [address] [place] [phone] PCP - General Family Medicine 03/25/23 documented as of this encounter
--- OUTSIDE RECORDS SUMMARY | 2025-03-16 17:00 | XMS_ITS | Encounter Summary ---
Author Organization [employer] Address 75 [facility] 7 [place] [address] Care Team Providers Care Education Analyst Name Role Phone Keesha Hines MD Primary Care Provider [phone] Reason for Visit * Reason Onset Date Comments Med Refill 08/10/2024 Encounter Details Date Type Department Care Team ([facility] st Contact Info) Description 08/10/2024 Refill [facility] [address] [place], [place] [phone] Keesha Hines MD [address] [place] [address] Social History Tobacco Use Types Packs/Day Years [...] Description 03/28/2025 3:45 PM EDT Procedure Visit [facility] [address] [place] [address] Keesha Hines MD [address] [place] [address] documented as of this encounter Visit Diagnoses Not on filedocumented in this encounter Additional Health Concerns Assessment Noted Time PHQ-9 Depression Total Score: 9 02/18/20 24 2:40 PM EDT documented as of this encounter Care Teams Education Analyst Relationship Specialty Start Date End Date Keesha Hines MD [address] [place] [phone] PCP - General Family Medicine 03/25/23 documented as of this encounter
--- OUTSIDE RECORDS SUMMARY | 2025-03-16 17:00 | XMS_ITS | Clinical Summary ---
Author Organization [employer] Address [address] [facility] 7t [place] [address] Care Team Providers Care Ammunition Assembly Laborer Name Role Phone Keesha Hines MD Primary Care Provider [phone] Allergies Active Allergy Reactions Criticality Noted Date Comments Penicillins Anaphylaxis High 06/29/2017 Medications methadone (Dolophine) 5 MG/5ML solution Take 90 mg by mouth 1 (one) time each day. Active albuterol (ProAir HFA) 108 (90 Base) MCG/ACT inhalerIndications :Mild intermittent asthma without complication Inhale 2 puffs by mouth as needed for wheezing every 4-6 hours 18 g 2 3 Active pantoprazole (Protonix) 20 MG EC tabletIndications: H. pylori infection Take 1 tablet (20 mg) by mouth 2 times daily. For H pylori treatment 60 tablet 4 Active butalbital-acetami nophen-caffeine 50-325-40 MG tabletIndications: Chronic nonintractable headache, unspecified headache type Take 1 tablet by mouth every 6 (six) hours if needed for headaches. 15 tablet 2 5 Active albuterol (Ventolin HFA) 108 (90 Base) MCG/ACT inhalerIndications :Mild intermittent asthma without complication INHALE 2 PUFFS BY MOUTH EVERY 4 TO 6 HOURS NEEDED FOR WHEEZING 18 g 11 5 Active buPROPion XL (Wellbutrin XL) 150 MG 24 hr tabletIndications: Anxiety Take 150 mg by mouth in the morning. 5 Active cloNIDine (Catapres) 0.1 MG tabletIndications: Anxiety Take 1 tablet by mouth 2 times daily. 5 Active ibuprofen 400 MG tabletIndications: Chronic nonintractable headache, unspecified headache type Take 1 tablet by mouth every 6 (six) hours if needed for pain. 5 Active ibuprofen 600 MG tablet Take 1 tablet by mouth every 6 (six) hours if needed for pain. 5 Active ondansetron ODT (Zofran-ODT) 4 MG disintegrating tabletIndications: H. pylori infection Take 1 tablet (4 mg) by mouth every 8 (eight) hours if needed for nausea or vomiting. 30 tablet 5 Active fluticasone (Flonase) 50 MCG/ACT nasal spray Administer 1-2 sprays into each nostril Once per day. Shake gently. Before first use, prime pump. After use, clean tip and replace cap. 16 g 3 5 026 Active loratadine (Claritin) 10 MG tablet Take 1 tablet (10 mg) by mouth Once per day. 90 tablet 3 5 026 Active cyanocobalamin (Vitamin B-12) 100 MCG tablet Take 1 tablet (100 mcg) by mouth Once per day. 30 tablet 11 5 026 Active polyvinyl alcohol (Liquifilm Tears) 1.4 % ophthalmic solutionIndication s:Dry eyes, bilateral Administer 1 drop into both eyes if needed for dry eyes. 15 mL 3 5 Active Active Problems Problem Noted Date Diagnosed Date H. pylori infection 10/02/2024 Assessment & Plan (10/02/2024 8:15 PM EDT): Will recheck H pylori stool antigen due to ongoing symptoms Concussion without loss of consciousness 025 Routine adult health maintenance 01/06/2023 Assessment & [...] 2 weeks ago Pap: referral sent to lighting fixture installer Substance use: 10 cigarettes a day, has patches. Down 3 butts. Smokes marijuana nightly for sleep. Denies etoh or drug use Lipids: labs ordered Eye exam: referral to eye doctor sent. Patient reports needs glasses but doesn't currently have them. Hasn't been to eye doctor since 18 y/o. Dental home: 3 weeks ago, children and family in [place]. Advised to [facility] dental. Asthma 01/06/2023 Overview (01/06/2023): 01/06/23 ACT [...] Encounters Date Type Department Care Team Description 02/21/2025 10:45 AM EDT Office Visit [facility] OPTOMETRY [address] [facility] [place] [address] Cathy Salas, OD Myopia, bilateral (Primary Dx) 02/21/2025 Travel 01/23/2025 1:00 PM EDT Office Visit [facility] OPTOMETRY [address] [facility] [place] [address] Mohini Castaneda, OD Myopia, bilateral (Primary Dx); Dry eyes, bilateral 01/23/2025 Travel 01/22/2025 Telephone [facility] [address] [place] [address] Keesha Hines MD Appointment Request 01/22/2025 Telephone [facility] [address] [place] [address] Keesha Hines MD Appointment Request 01/22/2025 Travel 01/22/2025 Orders Only [facility] [address] [place], [place] [phone] Keesha Hines MD 01/21/2025 Travel from Last 3 Months Immunizations Immunization Administration Dates Next Due Td (adult), 5 Lf tetanus tox oid, preservative free, adsorbed 02/04/2017 Tdap 07/28/2024 Social History Tobacco Use Types Packs/Day Years Used Date Smoking Tobacco: Every Day Cigarettes Passive Smoke Exposure: Never Smokeless Tobacco: Current Tobacco Cessation:Ready to Q uit: Not Asked; Counseling Given: Not Answered Comments:1.5 years ago quit cigarettes Alcohol Use Standard Drinks/Week Comments Never 0 [...] Q2 Not on file 03/06/2024 Comments Unknown Intention Date Recorded No desire to become (finding) 0 09/27/2024 Sex and Gender Information Value Date Recorded Sex Assigned at Female 05/04/2022 10:32 AM EDT Legal Sex Female 10:32 AM EDT Gender Identity Female 05/04/2022 10:32 AM EDT Sexual Orientation Lesbian or Forbes 05/04/2022 10 :32 AM EDT Last Filed Vital Signs Vital Sign Reading Time Taken Comments Blood Pressure 123/79 09/27/2024 4:47 PM EDT Pulse 78 09/27/2024 4:47 PM EDT Temperature 36.8 C (98.3 F) 09/27/2024 4:47 PM EDT Respiratory Rate 19 09/27/2024 4:47 PM EDT Oxygen Saturation 99% 09/27/2024 4:47 PM EDT Inhaled Oxygen Concentration - - Weight 59 kg (130 lb) 09/27/2024 4:47 PM EDT Height 165.1 cm (5' 5 ) 09/27/2024 4:47 PM EDT Body Mass Index 21.63 09/27/2024 4:47 PM EDT Plan of Treatment Upcoming Encounters Date Type Department Care Team (Late st Contact Info) Description 03/28/2025 3:45 PM EDT Procedure Visit [facility] [address] [place] [address] Keesha Hines MD [address] [place], [place] [phone] Health Maintenance Due Date Last Done Comments Lipid Panel 1991 Alcohol/Substance Use Screening 2003 HPV Vaccines (1 - 3-dose series) 10/09/2006 Hepatitis B Vaccines (1 of 3 - 19+ 3-dose series) 10/09/2010 Pneumococcal Vaccine: Pediatrics (0 to 5 Years) and At-Risk Patients (6 to 49) Years (1 of 2 - PCV) 10/09/2010 Pap Smear 10/09/2012 Cervical Cancer Screening 10/09/2021 HPV/Cotest 10/09/2021 Depression Monitoring 08/20/2024 02/18/2024 , 02/18/2024 SDOH Screening 02/17/2025 02/18/2024 COVID-19 Vaccine (1 - 2023-2 5 season) 2025 Influenza Vaccine (#1) 2025 Disability Screening 09/27/2025 09/27/2024 Family Planning (PISQ) 10/02/2025 10/02/2024 Tobacco Screening 01/23/2026 01/23/2025 DTaP/Tdap/Td Vaccines (2 - T d or Tdap) 07/28/2034 07/28/2024, 02/04/2017 Zoster Vaccines (1 of 2) 10/09/2041 RSV Patients and Patients Aged 60 years or older (1 - 1-dose 75+ series) 10/09/2066 HIV Screening Completed 05/18/2024 Hepatitis C Screening Completed 05/18/2024 HIB Vaccines Aged Out No longer eligi ble based on patient's age to complete this topic Hepatitis A Vaccines Aged Out No long er eligible based on patient's age to complete this topic IPV Vaccines Aged Out No longer eligi ble based on patient's age to complete this topic Meningococcal B Vaccine Aged Out No l onger eligible based on patient's age to complete [...] Procedure Name Priority Date/Time Associated Diagnosis Comments HEPATITIS C AB W/REFL TO HCV RNA, QN, PCR Routine 05/18/2024 12:15 PM EST Routine screening for STI (sexually transmitted infection) HIV 1/2 ANTIGEN/ANTIBODY, FOURTH GENERATION W/RFL Routine 05/18/2024 12:15 PM EST Routine screening for STI (sexually transmitted infection) from Last 3 Months or Most Recently Relevant to Health Maintenance Results * Hepatitis C Antibody with Reflex to HCV, RNA, Quantitative, Real-Time PCR (05/18/2024 12:15 PM EST) Hepatitis C Antibody Nonreactive Nonreactive [facility] Comment:Antibodies to HCV no t detected; does not exclude early acuteHCV infection. Blood Venous blood specimen / Unknown 05/18/2024 12:15 PM EST 05/18/2024 1:26 PM EST us Keesha Hines MD LAB BLOOD ORDERABLES Final Res ult [facility] [address] [place] [phone] * HIV-1/2 Antigen and Antibodies, Fourth Generation, with Reflexes (05/18/2024 12:15 PM EST) HIV AB/AG Nonreactive Nonreactive [facility] Comment:HIV-1 p24 Ag and/or HIV-1/HIV-2 Ab not detected.A test result that is nonreactive does not exclude thepossibility of exposure to or infection with HIV-1 and/orHIV-2. Nonreactive results in this assay for individualswith prior exposure to HIV-1 and/or HIV-2 may be due toantigen and antibody levels that are below the limit ofdetection of this assay.The [employer] HIV Ag/Ab Combo assay result andsupplemental assay results should be interpreted inconjunction with the patient's clinical presentation,history and other laboratory results. If the results areinconsistent with clinical evidence, additional testing issuggested to confirm the result. Blood Venous blood specimen / Unknown 05/18/2024 12:15 PM EST 05/18/2024 1:26 PM EST us Keesha Hines MD LAB BLOOD ORDERABLES Final Res ult [facility] [address] [place] [phone] [phone] from Last 3 Months or Most Recently Relevant to Health Maintenance Insurance [facility] C3 HSN FULL Care Teams Ammunition Assembly Laborer Relationship Specialty Start Date End Date Keesha Hines MD [address] [place] [address] PCP - General Family Medicine 03/25/23
--- OUTSIDE RECORDS SUMMARY | 2025-03-16 17:00 | XMS_ITS | Encounter Summary ---
Author Organization [employer] Address [address] [facility] 7 [place] [address] Care Team Providers Care Pet Training Instructor Name Role Phone Manav Tirado Primary Care Provider Unavail able Manav Tirado Primary Care Provider Unavail able Keesha Hines MD Primary Care Provider [phone] Reason for Visit * Reason Onset Date Comments New Patient Appt 11/24/2022 Encounter Details Date Type Department Care Team ([facility] st Contact Info) Description 11/24/2022 Telephone [facility] [address] [place] [address] Manav Tirado AGNP New Patient Appt Social [...] PAR Murphy Schmidt called pt to r/s [employer] appt. Pt demographics and insurance information were verified. Pt reports no previous care. Pt reports the following medical conditions: Chronic Asthma. Pt is currently takes medication methadone at this time. Pt given [employer] appt with on 01/06/[address] Manav Tirado @ 10:30 am. Pt will be sent appt reminder card and medical release form and agrees to complete and to return to medical records prior to [employer] appt. documented in this encounter Plan of Treatment Upcoming Encounters Date Type Department Care Team (Late st Contact Info) Description 03/28/2025 3:45 PM EDT Procedure Visit [facility] [address] [place] [address] Keesha Hines MD [address] [place] [address] documented as of this encounter Visit Diagnoses Not on filedocumented in this encounter Care Teams Pet Training Instructor Relationship Specialty Start Date End Date Manav Tirado AGNP PCP - General Family Medicine 08/05/22 12/02/22 Manav Tirado AGNP PCP - General Family Medicine 01/06/23 03/24/23 Keesha Hines MD [address] [place] [phone] PCP - General Family Medicine 03/25/23 documented as of this encounter
[2025-03-16] MEDS: iohexoL 350 MG/ML 100 ML INFUS..BTL IV (18:25)
[2025-03-16 18:30] VITALS: BP 123/75; PULSE 67; RESP 70; TEMP 36.7; O2SAT 100
--- NOTE | 2025-03-16 19:48 | PC.NURSE ---
Patient asking if/when she will receive IV fluids. IV fluids haven't been ordered by provider. Spoke with JEREMIAH Kaiser. Awaiting response. CT scan report completed a few minutes ago and being reviewed by JEREMIAH.
[2025-03-16 21:08] VITALS: BP 123/75; PULSE 67; RESP 16; TEMP 36.7; O2SAT 100
== END 2025-03-16 21:09 | disposition home or self-care (01) ==
PROVIDERS: Physician Assistant; Physician Assistant Medical; Emergency Provider Emergency Medicine
DX: R11.2 Nausea with vomiting, unspecified (principal); R10.13 Epigastric pain; R51.9 Headache, unspecified; R10.84 Generalized abdominal pain; R10.2 Pelvic and perineal pain; Z79.899 Other long term (current) drug therapy; Z11.52 Encounter for screening for COVID-19; Z03.818 Encounter for observation for suspected exposure to other biological agents ruled out
CPT/HCPCS: 36415; 70450; 74177; 80053; 83735; 84702; 85025; 87502; 87635; 96361; 96374; 96375; 99284; 99285; J1885; Q9967

== ENCOUNTER → 2025-03-16 15:46 | Outpatient (BNV) | payer MEDICAID, SELFPAY | PROVIDERS: Emergency Provider Emergency Medicine; Visit Provider Radiology Diagnostic Radiology | DX: R10.13 Epigastric pain (principal); R11.2 Nausea with vomiting, unspecified; R19.7 Diarrhea, unspecified; R51.9 Headache, unspecified | CPT/HCPCS: 70450; 74177 ==

== ENCOUNTER 2025-07-02 15:03 | Emergency (ER) | payer MEDICAID, SELFPAY ==
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
[2025-07-02 15:14] VITALS: BP 136/76; PULSE 88; RESP 18; TEMP 36.4; O2SAT 99; BMI 21.0
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
[2025-07-02 17:20] VITALS: BP 136/76; PULSE 88; RESP 18; TEMP 36.4; O2SAT 99
--- OUTSIDE RECORDS SUMMARY | 2025-07-02 18:05 | XMS_ITS | Encounter Summary ---
Author Organization [employer] Address [address] [facility] 7t [place] [address] Care Team Providers Care Director Digital Advertising Name Role Phone Manav Tirado Primary Care Provider Unavail able Manav Tirado Primary Care Provider Unavail able Keesha Hines MD Primary Care Provider [phone] Saida Roblero RN Unavailable [phone] Penelope Duran Unavailable Reason for Visit * Reason Onset Date Comments New Patient Appt 11/24/2022 Encounter Details Date Type Department Care Team (Late st Contact Info) Description 11/24/2022 Telephone [facility] [address] [place] [address] Manav Tirado AGNP New Patient Appt Social [...] Murphy Manuel - 11/24/2022 12:43 PM EDT WADE Schmidt called pt to r/s CONTROL CHEMIST appt. Pt demographics and insurance information were verified. Pt reports no previous care. Pt reports the following medical conditions: Chronic Asthma. Pt is currently takes medication methadone at this time. Pt given CONTROL CHEMIST appt with on 01/06/[address] Manav Tirado @ 10:30 am. Pt will be sent appt reminder card and medical release form and agrees to complete and to return to medical records prior to CONTROL CHEMIST appt. documented in this encounter Plan of Treatment Not on file documented as of this encounter Visit Diagnoses Not on filedocumented in this encounter Care Teams Director Digital Advertising Relationship Specialty Start Date End Date Manav Tirado AGNP PCP - General Family Medicine 08/05/22 12/02/22 Manav Tirado AGNP PCP - General Family Medicine 01/06/23 03/24/23 Keesha Hines MD [address] [place] [address] PCP - General Family Medicine 03/25/23 Saida Roblero RN [address] [place] [address] Registered Nurse Family Medicine 07/02/25 07/02/25 Penelope Duran 07/02/25 07/02/25 documented as of this encounter
--- OUTSIDE RECORDS SUMMARY | 2025-07-02 18:05 | XMS_ITS | Encounter Summary ---
Author Organization [employer] Address [address] [facility] 7 [place] [address] Care Team Providers Care Glost Tile Sorter Name Role Phone Keesha Hines MD Primary Care Provider [phone] Saida Roblero RN Unavailable [phone] Penelope Duran Unavailable Reason for Visit * Reason Comments Care Coordination C3 [facility] Penelope bundy telephone call outreach Encounter Details Date Type Department Care Team (Latest Contact Info) Description 07/02/2025 Patient Outreach [facility] [address] [place] [address] Keesha Hines MD [address] [place] [address] Care Coordination (C3 ISAK-CHRISTINA Duran telephone call outreach ) Social History Tobacco Use Types Packs/Day Years Used Date Smoking Tobacco: Every Day Cigarettes Passive Smoke Exposure: Never Smokeless Tobacco: Current Comments:1.5 years ago quit cigarettes Alcohol Use [...] AM EDT documented as of this encounter Progress Notes * Penelope Duran - 07/02/2025 2:17 PM EST CHW Penelope Duran called patient to introduce Adult Complex Care Program. Patient's name, and Address was confirmed. Program information was provided to the patient. Patient declined to participatein program. Provided patient with direct contact information for future reference. documented in this encounter Plan of Treatment Not on file documented as of this encounter Visit Diagnoses Not on filedocumented in this encounter Additional Health Concerns Assessment Noted Time PHQ-9 Depression Total Score: 9 02/18/20 24 2:40 PM EDT documented as of this encounter Care Teams Glost Tile Sorter Relationship Specialty Start Date End Date Keesha Hines MD [address] [place] [address] PCP - General Family Medicine 03/25/23 Saida Roblero, GOYO [address] [place] [address] Registered Nurse Family Medicine 07/02/25 07/02/25 Penelope Duran 07/02/25 07/02/25 documented as of this encounter
--- OUTSIDE RECORDS SUMMARY | 2025-07-02 18:05 | XMS_ITS | Encounter Summary ---
Author Organization [employer] Address [address] [facility] 7 [place] [address] Care Team Providers Care Nurse Obgyn Name Role Phone Keesha Hines MD Primary Care Provider [phone] Saida Roblero RN Unavailable [phone] Penelope Duran Unavailable Reason for Visit * Reason Onset Date Comments Nurse Triage 08/03/2024 Encounter Details Date Type Department Care Team (Late st Contact Info) Description 08/03/2024 Telephone [facility] [address] [place], [place] [phone] Keesha Hines MD [address] [place], [place] [phone] Nurse Triage Social History Tobacco Use Types [...] Reason: Getting worse Please contact pt at [phone]. documented in this encounter Plan of Treatment Not on file documented as of this encounter Visit Diagnoses Not on filedocumented in this encounter Additional Health Concerns Assessment Noted Time PHQ-9 Depression Total Score: 9 02/18/20 24 2:40 PM EDT documented as of this encounter Care Teams Nurse Obgyn Relationship Specialty Start Date End Date Keesha Hines MD [address] [place] [address] PCP - General Family Medicine 03/25/23 Saida Roblero RN [address] [place], [place] [phone] Registered Nurse Family Medicine 07/02/25 07/02/25 Penelope Duran 07/02/25 07/02/25 documented as of this encounter
--- OUTSIDE RECORDS SUMMARY | 2025-07-02 18:05 | XMS_ITS | Encounter Summary ---
Author Organization [employer] Address [address] [facility] 7t [place] [address] Care Team Providers Care Flower Shop Laborer/Designer Name Role Phone Keesha Hines MD Primary Care Provider [phone] Saida Roblero RN Unavailable [phone] Penelope Duran Unavailable Encounter Details Date Type Department Care Team (Late st Contact Info) Description 07/02/2025 Patient Outreach [facility] [address] [place], [place] [phone] Keesha Hines MD [address] [place], [place] [phone] Social History Tobacco Use Types Packs/Day Years [...] documented as of this encounter Care Teams Flower Shop Laborer/Designer Relationship Specialty Start Date End Date Keesha Hines MD [address] [place] [id number] PCP - General Family Medicine 03/25/23 Saida Roblero RN [address] [place] [address] Registered Nurse Family Medicine 07/02/25 07/02/25 Penelope Duran 07/02/25 07/02/25 documented as of this encounter
--- OUTSIDE RECORDS SUMMARY | 2025-07-02 18:05 | XMS_ITS | Encounter Summary ---
Author Organization [employer] Address [address] [facility] 7 [place] [address] Care Team Providers Care Prison Librarian Name Role Phone Keesha Hines MD Primary Care Provider [phone] Saida Roblero RN Unavailable [phone] Penelope Duran Unavailable Reason for Visit * Reason Onset Date Comments Med Refill 08/10/2024 Encounter Details Date Type Department Care Team (Late st Contact Info) Description 08/10/2024 Refill [facility] [address] [place], [place] [phone] Keesha Hines MD [address] [place], [place] [phone] Social History Tobacco Use Types Packs/Day Years [...] documented as of this encounter Care Teams Prison Librarian Relationship Specialty Start Date End Date Keesha Hines MD [address] [place] [address] PCP - General Family Medicine 03/25/23 Saida Roblero RN [address] [place] [address] Registered Nurse Family Medicine 07/02/25 07/02/25 Penelope Duran 07/02/25 07/02/25 documented as of this encounter
--- OUTSIDE RECORDS SUMMARY | 2025-07-02 18:05 | XMS_ITS | Encounter Summary ---
Author Organization [employer] Address [address] [facility] 7t [place] [address] Care Team Providers Care Transportation Department Head Name Role Phone Keesha Hines MD Primary Care Provider Saida Roblero RN Unavailable [phone] Penelope Duran Unavailable Reason for Referral * Consultation (Routine) - Closed Specialty Diagnoses / Procedures Referred By Linnea cagle Referred To Contact Optometry Diagnoses Blurry vision Keesha Hines MD [address] [place] [address] Phone: tel: fax: Referral ID Status Reason Start Date Expiration Date V isits Requested Visits Authorized [id number] Closed Specialty Services Required 10/27/2024 10/27/2025 1 1 Encounter Details Date Type Department Care Team (Late st Contact Info) Description 10/27/2024 Orders Only [facility] [address] [place] [address] Keesha Hines MD [address] [place], [place] [phone] Blurry vision (Primary Dx) Social History Tobacco [...] of this encounter Plan of Treatment Scheduled Referrals Name Type Priority Associated Diagnoses [...] documented as of this encounter Care Teams Transportation Department Head Relationship Specialty Start Date End Date Keesha Hines MD [address] [place] [phone] PCP - General Family Medicine 03/25/23 Saida Roblero, GOYO [address] [place], [place] [address]Jefe [place] [phone] Registered Nurse Family Medicine 07/02/25 07/02/25 Penelope Duran 07/02/25 07/02/25 documented as of this encounter
--- OUTSIDE RECORDS SUMMARY | 2025-07-02 18:05 | XMS_ITS | Encounter Summary ---
Author Organization [employer] Address 75 [facility] 7 [place] [address] Care Team Providers Care Chief Technician Name Role Phone Keesha Hines MD Primary Care Provider [phone] Saida Roblero RN Unavailable [phone] Penelope Duran Unavailable Reason for Visit * Reason Comments Care Management C3 -CHART REVIEW Encounter Details Date Type Department Care Team (Late st Contact Info) Description 07/02/2025 Patient Outreach [facility] MEDICINE [address] [place], [place] [phone] Keesha Hines MD [address] [place], [place] [phone] Care Management ([facility] -CHART REVIEW ) Social History Tobacco Use Types Packs/Day [...] as of this encounter Progress Notes * Saida Roblero RN - 07/02/2025 9:29 AM EST Saida Roblero RN, performed chart review, in anticipation of initial assessment with patient, as patient has stratified for C3 Adult Complex Care through ADT feed. History significant for Patient Active Problem List Diagnosis Date Noted H. pylori infection 10/02/2024 Concussion without loss of consciousness 10/02/2024 Routine adult health maintenance 01/06/2023 Asthma 01/06/2023 Long-term current use of methadone for opiate dependence (HCC) 01/06/2023 Opioid use disorder in remission 07/03/2021 Specialists include [facility]. ED visits within the last 12 months include [facility], [facility] 08/05/24, [facility] 07/09/24. Last appointment in PCP office on 09/27/24. No upcoming appointment scheduled with PCP. documented in this encounter Plan of Treatment Not on file documented as of this encounter Visit Diagnoses Not on filedocumented in this encounter Additional Health Concerns Assessment Noted Time PHQ-9 Depression Total Score: 9 02/18/20 24 2:40 PM EDT documented as of this encounter Care Teams Chief Technician Relationship Specialty Start Date End Date Keesha Hines MD [address] [place] [address] PCP - General Family Medicine 03/25/23 Saida Roblero, GOYO [address] [place] [address] Registered Nurse Family Medicine 07/02/25 07/02/25 Penelope Duran 07/02/25 07/02/25 documented as of this encounter
--- OUTSIDE RECORDS SUMMARY | 2025-07-02 18:05 | XMS_ITS | Clinical Summary ---
Author Organization [employer] Address 75 [facility] 7t [place] [address] Care Team Providers Care Segment Assembler Name Role Phone Keesha Hines MD Primary Care Provider [phone] Saida Roblero RN Unavailable [phone] Penelope Duran Unavailable Allergies Active Allergy Reactions Criticality Noted Date [...] hours if needed for pain. 5 Active loratadine (Claritin) 10 MG tablet Take [...] dry eyes. 15 mL 3 5 Active fluticasone (Flonase) 50 MCG/ACT nasal spray INSTILL 1-2 SPRAYS IN EACH NOSTRIL ONCE DAILY 48 g 5 Active Acetaminophen Extra Strength 500 MG tablet TAKE 2 TABLETS BY MOUTH EVERY 6 HOURS NEEDED FOR PAIN OR FEVER 5 Active Adderall XR 10 MG 24 hr capsule take 1 capsule by mouth every day in the morning 5 Active dicyclomine (Bentyl) 10 MG capsule TAKE 1 CAPSULE BY MOUTH THREE TIMES DAILY NEEDED FOR CRAMPS FOR 5 DAYS 5 Active omeprazole (PriLOSEC) [address] capsule Take 1 capsule by mouth Once per day. 5 Active sucralfate (Carafate) 1 g tablet Take 1 tablet by mouth every 6 (six) hours. 5 Active ondansetron ODT (Zofran-ODT) 4 MG disintegrating tabletIndications: H. pylori infection Take 1 tablet (4 mg) by mouth every 8 (eight) hours if needed for nausea or vomiting. 30 tablet 05/28/2025 4:49 PM EST 5 Active Active Problems Problem Noted Date [...] 2 weeks ago Pap: referral sent to inspector [employer] Substance use: 10 cigarettes a day, has patches. Down 3 butts. Smokes marijuana nightly for sleep. Denies etoh or drug use Lipids: labs ordered Eye exam: referral to eye doctor sent. Patient reports needs glasses but doesn't currently have them. Hasn't been to eye doctor since 18 y/o. Dental home: 3 weeks ago, [place] in [place]. Advised to [facility] dental. Asthma 01/06/2023 Overview (01/06/2023): 01/06/23 [...] Encounters Date Type Department Care Team Description 07/02/2025 Patient Outreach [address] [address] Keesha Hines MD Care Coordination (C3 -[facility] telephone call outreach ) 07/02/2025 Patient Outreach [address] [address] Keesha Hines MD Care Coordination (C3 CM-[facility] chart review) 07/02/2025 Patient Outreach [address] [address] Keesha Hines MD Care Management (C3 -CHART REVIEW ) 07/02/2025 Patient Outreach [address] [address] Keesha Hines MD 05/28/[address] [address] Keesha Hines MD H. pylori infection from Last 3 Months Immunizations Immunization Administration [...] 09/27/2024 4:47 PM EDT Plan of Treatment Health Maintenance Due Date [...] Screening 02/17/2025 02/18/2024 COVID-19 Vaccine (1 - 2024-2 6 season) 2025 Influenza Vaccine (#1) 2025 Disability [...] PM EST) Hepatitis C Antibody Nonreactive Nonreactive [facility] Comment:Antibodies to HCV no t detected; does not exclude early acuteHCV infection. Blood Venous blood specimen / Unknown 05/18/2024 12:15 PM EST 05/18/2024 1:26 PM EST us Keesha Hines MD LAB BLOOD ORDERABLES Final Res ult [facility] [address] [place] [phone] * HIV-1/2 Antigen and Antibodies, Fourth Generation, with Reflexes (05/18/2024 12:15 PM EST) HIV AB/AG Nonreactive Nonreactive [facility] Comment:HIV-1 p24 Ag and/or HIV-1/HIV-2 Ab not detected.A test result that is nonreactive does not exclude thepossibility of exposure to or infection with HIV-1 and/orHIV-2. Nonreactive results in this assay for individualswith prior exposure to HIV-1 and/or HIV-2 may be due toantigen and antibody levels that are below the limit ofdetection of this assay.The [employer] HIV Ag/Ab Combo assay result andsupplemental assay results should be interpreted inconjunction with the patient's clinical presentation,history and other laboratory results. If the results areinconsistent with clinical evidence, additional testing issuggested to confirm the result. Blood Venous blood specimen / Unknown 05/18/2024 12:15 PM EST 05/18/2024 1:26 PM EST us Keesha Hines MD LAB BLOOD ORDERABLES Final Res ult [facility] [address] [place] [phone] from Last 3 Months or Most Recently Relevant to Health Maintenance Insurance [facility] C3 HSN FULL Care Teams Segment Assembler Relationship Specialty Start Date End Date Keesha Hines MD [address] [place] [address] PCP - General Family Medicine 03/25/23 Saida Roblero RN [address] [place] [address] Registered Nurse Family Medicine 07/02/25 07/02/25 Penelope Duran 07/02/25 07/02/25
--- OUTSIDE RECORDS SUMMARY | 2025-07-02 18:05 | XMS_ITS | Encounter Summary ---
Author Organization [employer] Address 75 [facility] 7t [place] [address] Care Team Providers Care Director Facilities Maintenance Name Role Phone Keesha Hines MD Primary Care Provider [phone] Saida Roblero RN Unavailable [phone] Penelope Duran Unavailable Reason for Visit * Reason Comments Care Coordination [facility] Encounter Details Date Type Department Care Team (Latest Contact Info) Description 07/02/2025 Patient Outreach [facility] MEDICINE [address] [place] [address] Keesha Hines MD [address] [place] [address] Care Coordination (C3 RENETTA Duran chart review) Social History Tobacco Use Types Packs/Day Years [...] Progress Notes * Penelope Duran - 07/02/2025 9:48 AM EST ISAK Roblero RN, performed chart review, in anticipation [...] use disorder in remission 07/03/2021 Specialists include [facility]. ED visits within the last 12 months include [facility]06/27/25, [facility] 08/05/24, [facility] 07/09/24. Last appointment in PCP office on 09/27/24. No upcoming appointment scheduled with PCP. CHRISTINA Duran reviewed chart review completed by ISAK Roblero RN documented in this encounter Plan of Treatment Not on file documented as of this encounter Visit Diagnoses Not on filedocumented in this encounter Additional Health Concerns Assessment Noted Time PHQ-9 Depression Total Score: 9 02/18/20 24 2:40 PM EDT documented as of this encounter Care Teams Director Facilities Maintenance Relationship Specialty Start Date End Date Keesha Hines MD [address] [place], [place] [phone] PCP - General Family Medicine 03/25/23 Saida Roblero RN [address] [place], [place] [phone] Registered Nurse Family Medicine 07/02/25 07/02/25 Penelope Duran 07/02/25 07/02/25 documented as of this encounter
--- OUTSIDE RECORDS SUMMARY | 2025-07-02 18:05 | XMS_ITS | Encounter Summary ---
Author Organization [employer] Address 75 [facility] 7t [place] [address] Care Team Providers Care Supervisor Shearing Name Role Phone Keesha Hines MD Primary Care Provider [phone] Saida Roblero RN Unavailable [phone] Penelope Duran Unavailable Encounter Details Date Type Department Care Team (Late st Contact Info) Description 01/22/2025 Orders Only [facility] MEDICINE [address] [place], [place] [phone] Keesha Hines MD [address] [place], [place] [phone] Social History Tobacco Use Types Packs/Day Years [...] your housing situation today? I have dipti jose 02/18/[address] you li [...] documented as of this encounter Care Teams Supervisor Shearing Relationship Specialty Start Date End Date Keesha Hines MD [address] [place] [address] PCP - General Family Medicine 03/25/23 Saida Roblero RN [address] [place] [address] Registered Nurse Family Medicine 07/02/25 07/02/25 Penelope Duran 07/02/25 07/02/25 documented as of this encounter
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
--- OUTSIDE RECORDS SUMMARY | 2025-07-02 18:05 | XMS_ITS | Encounter Summary ---
Author Organization [employer] Address 75 [facility] 7t [place] [address] Care Team Providers Care Logistics Administrator Name Role Phone Keesha Hines MD Primary Care Provider [phone] Saida Roblero RN Unavailable [phone] Penelope Duran Unavailable Encounter Details Date Type Department Care Team (Late st Contact Info) Description 02/21/2024 Orders Only [facility] MEDICINE [address] [place], [place] [phone] Keesha Hines MD [address] [place], [place] [phone] Nausea and vomiting, unspecified vomiting type (Primary [...] EDT) Lipase 10 8 - 78 U/L [facility] 03/27/2024 4:08 AM EDT 03/27/2024 4:11 AM EDT us Generic External Data Provider LAB BLOOD ORDERAB LES Final Result [facility] [address] [place] [phone] * (ABNORMAL) Comprehensive Metabolic Panel (03/27/2024 4:08 AM EDT) Sodium 144 135 - 145 mmol/L [facility] Potassium 3.9 3.3 - 5.1 mmol/L [facility] Chloride 107 96 - 108 mmol/L [facility] Carbon Dioxide 29 22 - 29 mmol/L [facility] Anion Gap 12 12 - 20 [facility] Urea Nitrogen (BUN) 14 9 - 16 mg/dL [facility] Creatinine, Serum 0.83 0.5 - 1.4 mg/dL [facility] Creatinine Clr Calc Pharmacy 87.6 [facility] Comment:Provided height and weight: 165.1 cm,61.235 kg.eGFR (calculated from the MDRD study equation) and eCrCl(calculated from the Cockcroft-Gault equation) are based ondifferent parameters and may not yield comparable results.If eCrCl result is absurd, please check patient'sheight/weight. Estimated Glomerular Filt Rate >60 [facility] Comment:NOTE: For -Am erican individuals, multiply the result by 1.210.Chronic Kidney Disease: Estimated GFR < 60 mL/min/1.87j2Gxmpwd Kidney Disease: Estimated GFR < 15 mL/min/1.73m2 Glucose 122(H) 60 - 115 mg/dL [facility] Calcium 9.6 8.4 - 10.2 mg/dL [facility] Bilirubin, Total 0.5 0.0 - 1.0 mg/dL [facility] Aspartate Amino Transferase 26 5 - 31 U/L [facility] Alanine Aminotransferase 22 0 - 31 U/L [facility] Total Protein 6.4(L) 6.5 - 8.0 g/dL [facility] Albumin Level 4.0 3.5 - 5.0 g/dL [facility] Alkaline Phosphatase 40 39 - 117 U/L [facility] 03/27/2024 4:08 AM EDT 03/27/2024 4:11 AM EDT us Generic External Data Provider LAB BLOOD ORDERAB LES Final Result [facility] [address] [place] [phone] * (ABNORMAL) CBC auto differential (03/27/2024 4:08 AM EDT) White Blood Count 10.6 4.8 - 10.8 X10*3/uL [facility] Red Blood Count 4.47 4.20 - 5.50 X10*6/uL [facility] Hemoglobin 13.1 12.0 - 16.0 g/dl [facility] Hematocrit 38.1 37.0 - 47.0 % [facility] Mean Corpuscular Volume 85.2 80.0 - 98.0 fL [facility] Mean Corpuscular Hemoglobin 29.3 27.0 - 33.0 pg [facility] Mean Corpuscular HGB Conc 34.4 31.0 - 35.0 g/dl [facility] Red Cell Distribution Width 12.7 11.0 - 16.0 % [facility] Platelet Count 251 160 - 400 X10*3/uL [facility] Mean Platelet Volume 9.3(L) 9.4 - 12.3 fL [facility] Neutrophils Percent Auto 85.4(H) 45 - 73 % [facility] Imm Gran Pct Auto 0.3 0.0 - 0.4 % [facility] Lymphocytes Percent Auto 10.4(L) 20 - 40 % [facility] Monocytes Percent Auto 2.7 2 - 11 % [facility] Eosinophils Percent Auto 0.4 0 - 4 % [facility] Basophils Percent Auto 0.8 0 - 2 % [facility] NRBC Pct Auto 0.0 0.0 - 0.2 /100WBC [facility] Neutrophils Absolute Auto 9.1(H) 2.0 - 8.3 x10*3/uL [facility] Imm Gran Abs Auto 0.03 0.00 - 0.03 X10*3/uL [facility] Lymphocytes Absolute Auto 1.1(L) 1.2 - 4.9 X10*3/uL [facility] Monocytes Absolute Auto 0.3 0.1 - 1.2 X10*3/uL [facility] Eosinophils Absolute Auto 0.0 0.0 - 0.4 X10*3/uL [facility] Basophils Absolute Auto 0.1 0.0 - 0.2 X10*3/uL [facility] NRBC Abs Auto 0.000 0.0 - 0.012 X10*3/uL [facility] 03/27/2024 4:08 AM EDT 03/27/2024 4:11 AM EDT us Generic External Data Provider LAB BLOOD ORDERAB LES Final Result [facility] [address] [place] [phone] * SARS-CoV-2 RNA, Influenza A/B, and RSV RNA, Ql NAAT (03/27/2024 3:15 AM EDT) Influenza A PCR NEGATIVE Negative [facility] Influenza B PCR NEGATIVE Negative [facility] Resp Syncy Virus RNA Qual PCR NEGATIVE Negative [facility] SARS COV2 PCR NEGATIVE Negative [facility] Comment:All test results mus t [...] use by authorized laboratories.Testing performed on the [employer] GeneXpert utilizingreal-time RT-PCR.All SARS CoV2 and positive influenza A/B results arereported to [facility]. 03/27/2024 3:15 AM EDT 03/27/2024 3:17 AM EDT us Generic External Data Provider LAB MICROBIOLOGY - GENERAL ORDERABLES Final Result [facility] [address] [place] [address] [phone] documented in this encounter Visit Diagnoses Diagnosis Nausea and vomiting, unspecified vomiting type- Primary documented in this encounter Additional Health Concerns Assessment Noted Time PHQ-9 Depression Total Score: 9 02/18/20 24 2:40 PM EDT documented as of this encounter Care Teams Logistics Administrator Relationship Specialty Start Date End Date Keesha Hines MD [address] [place] [address] PCP - General Family Medicine 03/25/23 Saida Roblero RN [address] [place] [address] Registered Nurse Family Medicine 07/02/25 07/02/25 Penelope Duran 07/02/25 07/02/25 documented as of this encounter
--- OUTSIDE RECORDS SUMMARY | 2025-07-02 18:05 | XMS_ITS | Encounter Summary ---
Author Organization [employer] Address 75 [facility] 7 [place] [address] Care Team Providers Care Plastic Welder Name Role Phone Keesha Hines MD Primary Care Provider [phone] Saida Roblero RN Unavailable [phone] Penelope Duran Unavailable Reason for Visit * Reason Onset Date Comments Nurse Triage 02/17/2024 Encounter Details Date Type Department Care Team (Late st Contact Info) Description 02/17/2024 Telephone [facility] MEDICINE [address] [place], [place] [phone] Keesha Hines MD [address] [place], [place] [phone] Nurse Triage Social History Tobacco Use Types [...] documented as of this encounter Care Teams Plastic Welder Relationship Specialty Start Date End Date Keesha Hines MD [address] [place] [address] PCP - General Family Medicine 03/25/23 Saida Roblero RN [address] [place] [address] Registered Nurse Family Medicine 07/02/25 07/02/25 Penelope Duran 07/02/25 07/02/25 documented as of this encounter
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
== END 2025-07-02 17:20 | disposition home or self-care (01) ==
PROVIDERS: Emergency Provider Emergency Medicine
DX: S09.90XA Unspecified injury of head, initial encounter (principal); R51.9 Headache, unspecified; V43.52XA Car driver injured in collision with other type car in traffic accident, initial encounter; Y93.9 Activity, unspecified; Y92.410 Unspecified street and highway as the place of occurrence of the external cause; Y99.8 Other external cause status
CPT/HCPCS: 70450; 99282; 99284

== ENCOUNTER → 2025-07-02 15:18 | Outpatient (BNV) | payer MEDICAID, SELFPAY | PROVIDERS: Emergency Provider Emergency Medicine; Visit Provider Radiology Diagnostic Radiology | DX: R51.9 Headache, unspecified (principal); Z04.9 Encounter for examination and observation for unspecified reason | CPT/HCPCS: 70450 ==